=== PATIENT | male | born 1995 | race Caucasian/White ===

== ENCOUNTER 2020-09-24 21:15 | Emergency (ER) | payer MEDICAID, SELFPAY ==
[2020-09-24 21:27] VITALS: BP 153/86; PULSE 95; RESP 16; TEMP 36.8; O2SAT 99; BMI 20.7
[2020-09-24 21:56] LABS: Glucose Urine UA NEG (NEG); Leukocyte Esterase Urine 1+ (NEG); Nitrite Urine NEG (NEG); PH 8.5 (5.0-8.0); Urine Blood 3+ (NEG); Urine Ketones NEG (NEG)
[2020-09-24 21:58] LABS: Appearance Urine CLOUDY; Color Urine YELLOW; Urine Protein 2+ MG/DL (NEG-TRACE)
[2020-09-24 22:07] LABS: Amorphous Sediment Urine 2+ /LPF; Bacteria Urine 2+ /LPF; RBC Urine 50-75 /HPF (0)
[2020-09-24] MEDS: Ketorolac Tromethamine 30 MG/ML VIAL IVPUSH (22:46)
[2020-09-24] MEDS: 0.9 % Sodium Chloride 1,000 ML 999 ML IVCONT (22:46)
[2020-09-24 22:55] LABS: Basophils Absolute Auto 0.1 X10*3/uL (0.0-0.2); Basophils Percent Auto 0.7 % (0-2); Eosinophils Absolute Auto 0.6 X10*3/uL (0.0-0.4); Eosinophils Percent Auto 7.6 % (0-4); Hematocrit 41.7 % (42-52); Hemoglobin 14.1 g/dl (14.0-18.0); Imm Gran Abs Auto 0.01 X10*3/uL (0.00-0.03); Imm Gran Pct Auto 0.1 % (0.0-0.4); Lymphocytes Absolute Auto 2.9 X10*3/uL (1.2-4.9); Lymphocytes Percent Auto 38.1 % (20-40); MANUAL DIFF FLAG NO; Mean Corpuscular HGB Conc 33.8 g/dl (31.0-36.0); Mean Corpuscular Hemoglobin 31.7 pg (27.0-33.0); Mean Corpuscular Volume 93.7 fL (80-98); Mean Platelet Volume 9.8 fL (9.4-12.4); Monocytes Absolute Auto 0.6 X10*3/uL (0.1-1.2); Monocytes Percent Auto 8.1 % (2-11); Neutrophils Absolute Auto 3.4 X10*3/uL (2.0-8.3); Neutrophils Percent Auto 45.4 % (45-73); Platelet Count 285 X10*3/uL (160-400); Red Blood Count 4.45 X10*6/uL (4.60-5.80); Red Cell Distribution Width 12.4 % (11.0-16.0); White Blood Count 7.5 X10*3/uL (4.8-10.8)
[2020-09-24 23:03] LABS: Prothrombin Time 11.6 SEC (10.8-13.0)
[2020-09-24 23:05] LABS: Partial Thromboplastin Time 34.5 SEC (24.1-38.0)
--- NOTE | 2020-09-24 23:12 | ED.ABDPAIN ---
HPI - Abdominal Pain General Chief Complaint: Abdominal Pain Stated Complaint: abd pain Time Seen by Provider: 09/24/20 22:15 Source: patient Mode of arrival: ambulatory Limitations: no limitations History of Present Illness HPI narrative: Patient presents to ED for right-sided abdominal pain, flank pain and , hematuria. Patient states history of kidney stones. Patient states he had stent placed 2 months ago. Patient states no fever, chills, penile lesions, or testicular pain. Patient states having symptoms for the past 2 days MD elicited complaint: abdominal pain and flank pain Related Data Previous Rx's Medication Instructions Recorded cefpodoxime 200 mg PO Q12H #20 tab 09/25/20 naproxen 500 mg PO BID PRN #20 tab 09/25/20 oxycodone-acetaminophen [Percocet] 1 tab PO TID PRN #9 tab 09/25/20 tamsulosin [Flomax] 0.4 mg PO DAILY #10 cap 09/25/20 Allergies Allergy/AdvReac Type Severity Reaction Status Date / Time sulfamethoxazole Allergy Mild HIVES Verified 09/24/20 21:26 [From BACTRIM] trimethoprim [From BACTRIM] Allergy Mild HIVES Verified 09/24/20 21:26 Review of Systems Constitutional: Reports as per HPI and Reports no additional constitutional complaints Eyes: Reports as per HPI and Reports no additional eye complaints Reports system reviewed and no additional complaints, except as documented and Reports as per HPI Cardiovascular: Reports as per HPI and Reports no additional cardiovascular complaints Respiratory: Reports as per HPI and Reports no additional respiratory complaints Gastrointestinal: Reports as per HPI, Reports no additional gastrointestinal complaints and Reports abdominal pain Comments: right flank pain Genitourinary: Reports no additional male genitourinary complaints, Reports as per HPI, Reports dysuria and Reports flank pain Musculoskeletal: Reports no additional musculoskeletal complaints and Reports as per HPI Reports system reviewed and no additional complaints, except as documented and Reports as per HPI Psychiatric: Reports no additional psychiatric complaints and Reports as per HPI Physical Exam Vital Signs: Vital Signs: Last Vital Signs Temp 98.2 F 09/24/20 21:27 Pulse 97 09/25/20 01:38 Resp 16 09/25/20 01:38 BP 125/75 09/25/20 01:38 Pulse Ox 100 09/25/20 01:38 Body Mass Index 20.7 Const: General: cooperative, healthy appearing, comfortable, no acute distress, well developed, alert, awake and Physically active Orientation/consciousness: oriented to person, oriented to place, oriented to time and patient oriented x3 HENMT: Head: Yes normal to inspection and Yes No palpable skull fracture present Eyes: General: appearance normal, both eyes and all related structures Neck: Neck: Yes normal visual inspection and Yes full ROM Chest: Chest palpation & inspection: normal inspection of the chest and normal palpation of entire chest wall Resp: Effort & Inspection: normal respiratory effort and able to speak in complete sentences Cardio: Jugular venous distension: no JVD Heart sounds: S1 normal heart sound present and S2 normal heart sound present GI: Inspection: Yes normal to inspection Palpation (GI): Soft to palpation, not firm, Tenderness to palpation present (GI) in the RLQ; not in the epigastrum, not at McBurney's point, not periumbilically, not suprapubicly, Ward's sign negative, obturator sign negative, psoas sign negative, with no rebound tenderness and Rovsing's sign negative, no guarding and not rigid : General: Yes CVA tenderness ( right-sided) Back/Spine/Pelvis: Back: CVA tenderness ( right-sided) Skin: General skin exam: no rashes or lesions noted Neuro: General: oriented to person, oriented to place, oriented to time, patient oriented x3, gait normal and CN's II-XI intact bilaterally Cranial nerves: Yes CN's II-XII intact bilaterally Extrem: General: Yes normal to inspection and Yes full ROM Psych: Appearance: grossly normal, well kempt and not disheveled Course Course Course Narrative: history physical exam indicate kidney stones. Patient will be sent for CT scan to rule out kidney stone. Patient will have labs, IV fluids, Toradol ordered. Reevaluation(s) Reevaluation #1: CT scan shows 8x5mm right ureter stone. CT scan negative for obtruction or hydrnephrosis. Patient's pain resolved with toradol. Patient kidney function is normal. Patient UA shows possible miild UTI. Patient has stent in right kidney. Cased discussed with attendant Dr. Anderson who states patient is safe for discharge and can call Urologist for outpatient appointment. Patient is not septic or toxic appearing. Patient to be discharged with cepdoxime and percocet. Time: 02:45 MDM - Abdominal Pain MDM Narrative Medical decision making narrative: Kidney stones Lab Data Result diagrams: 09/24/20 22:38 09/24/20 22:38 Labs: Lab Results 09/24/20 09/24/20 09/24/20 Range/Units 21:44 22:38 22:38 WBC 7.5 (4.8-10.8) X10*3/uL RBC 4.45 L (4.60-5.80) X10*6/uL Hgb 14.1 (14.0-18.0) g/dl Hct 41.7 L (42-52) % MCV 93.7 (80-98) fL MCH 31.7 (27.0-33.0) pg MCHC 33.8 (31.0-36.0) g/dl RDW 12.4 (11.0-16.0) % Plt Count 285 (160-400) X10*3/uL MPV 9.8 (9.4-12.4) fL Immature Gran % (Auto) 0.1 (0.0-0.4) % Neut % (Auto) 45.4 (45-73) % Lymph % (Auto) 38.1 (20-40) % [place] % (Auto) 8.1 (2-11) % Eos % (Auto) 7.6 H (0-4) % Baso % (Auto) 0.7 (0-2) % Lymph # (Auto) 2.9 (1.2-4.9) X10*3/uL [place] # (Auto) 0.6 (0.1-1.2) X10*3/uL Eos # (Auto) 0.6 H (0.0-0.4) X10*3/uL Baso # (Auto) 0.1 (0.0-0.2) X10*3/uL Abs Immat Gran (auto) 0.01 (0.00-0.03) X10*3/uL Absolute Neuts (auto) 3.4 (2.0-8.3) X10*3/uL Absolute Nucleated RBC 0.000 (0.0-0.012) X10*3/uL Nucleated RBC % (auto) 0.0 (0.0-0.2) /100WBC PT 11.6 (10.8-13.0) SEC INR 1.0 (0.9-1.1) APTT 34.5 (24.1-38.0) SEC Sodium (135-145) mmol/L Potassium (3.3-5.1) mmol/l Chloride (96-108) mmol/L Carbon Dioxide (22-29) mmol/L Anion Gap (12-20) BUN (9-16) mg/dL Creatinine (0.5-1.4) mg/dL Estim Creat Clear Calc Estimated GFR Random Glucose (60-115) mg/dL Calcium (8.4-10.2) mg/dL Total Bilirubin (0.0-1.0) mg/dL Direct Bilirubin (0.0-0.5) mg/dL AST (5-37) U/L ALT (0-40) U/L Alkaline Phosphatase (39-117) U/L Total Protein (6.5-8.0) g/dL Albumin (3.5-5.0) g/dL Lipase (8-78) U/L Urine Color YELLOW Urine Appearance CLOUDY Urine pH 8.5 H (5.0-8.0) Ur Specific [place] 1.020 (1.005-1.025) Urine Protein 2+ H (NEG-TRACE) MG/DL Urine Glucose (UA) NEG (NEG) MG/DL Urine Ketones NEG (NEG) MG/DL Urine Blood 3+ H (NEG) Urine Nitrite NEG (NEG) Ur Leukocyte Esterase 1+ H (NEG) Urine RBC 50-75 H (0) /HPF Urine WBC 1-4 (0-4) /HPF Ur Squamous Epith Cells NONE /LPF Amorphous Sediment 2+ /LPF Urine Bacteria 2+ /LPF 09/24/20 Range/Units 22:38 WBC (4.8-10.8) X10*3/uL RBC (4.60-5.80) X10*6/uL Hgb (14.0-18.0) g/dl Hct (42-52) % MCV (80-98) fL MCH (27.0-33.0) pg MCHC (31.0-36.0) g/dl RDW (11.0-16.0) % Plt Count (160-400) X10*3/uL MPV (9.4-12.4) fL Immature Gran % (Auto) (0.0-0.4) % Neut % (Auto) (45-73) % Lymph % (Auto) (20-40) % [place] % (Auto) (2-11) % Eos % (Auto) (0-4) % Baso % (Auto) (0-2) % Lymph # (Auto) (1.2-4.9) X10*3/uL [place] # (Auto) (0.1-1.2) X10*3/uL Eos # (Auto) (0.0-0.4) X10*3/uL Baso # (Auto) (0.0-0.2) X10*3/uL Abs Immat Gran (auto) (0.00-0.03) X10*3/uL Absolute Neuts (auto) (2.0-8.3) X10*3/uL Absolute Nucleated RBC (0.0-0.012) X10*3/uL Nucleated RBC % (auto) (0.0-0.2) /100WBC PT (10.8-13.0) SEC INR (0.9-1.1) APTT (24.1-38.0) SEC Sodium 140 (135-145) mmol/L Potassium 4.0 (3.3-5.1) mmol/l Chloride 105 (96-108) mmol/L Carbon Dioxide 27 (22-29) mmol/L Anion Gap 12 (12-20) BUN 16 (9-16) mg/dL Creatinine 1.13 (0.5-1.4) mg/dL Estim Creat Clear Calc 81.5 Estimated GFR > 60 Random Glucose 97 (60-115) mg/dL Calcium 8.7 (8.4-10.2) mg/dL Total Bilirubin 0.2 (0.0-1.0) mg/dL Direct Bilirubin < 0.2 (0.0-0.5) mg/dL AST 15 (5-37) U/L ALT 8 (0-40) U/L Alkaline Phosphatase 62 (39-117) U/L Total Protein 7.0 (6.5-8.0) g/dL Albumin 4.3 (3.5-5.0) g/dL Lipase 20 (8-78) U/L Urine Color Urine Appearance Urine pH (5.0-8.0) Ur Specific [place] (1.005-1.025) Urine Protein (NEG-TRACE) MG/DL Urine Glucose (UA) (NEG) MG/DL Urine Ketones (NEG) MG/DL Urine Blood (NEG) Urine Nitrite (NEG) Ur Leukocyte Esterase (NEG) Urine RBC (0) /HPF Urine WBC (0-4) /HPF Ur Squamous Epith Cells /LPF Amorphous Sediment /LPF Urine Bacteria /LPF Discharge Plan Discharge Clinical Impression: Calculus, ureter Patient Disposition: Home, Self-Care Instructions: Ureteral Stones (ED) Additional Instructions: return to the ED immediately for worsening abdominal pain, flank pain, fever, chills, nausea, vomiting, or any other concerning symptoms. Prescriptions: New cefpodoxime 200 mg tablet 200 mg PO Q12H Qty: 20 RF: 0 oxycodone-acetaminophen [Percocet] 5-325 mg tablet 1 tab PO TID PRN (Reason: pain) Qty: 9 RF: 0 tamsulosin [Flomax] 0.4 mg capsule 0.4 mg PO DAILY Qty: 10 RF: 0 naproxen 500 mg tablet 500 mg PO BID PRN (Reason: pain) Qty: 20 RF: 0 Referrals: Michael Wasserman MD [Physician] - 2 days ( 8 x 5 mm ureter stone. Patient already has stent.) Discharge Date/Time: 09/25/20 03:05 Print Language: Samoan [facility] Past Medical History Medical History Kidney stones Social History Social History Alcohol intake: unknown Smoking Status: Unknown if ever smoked Use of substances other than those prescribed or required for medical reasons: Unknown Advance Directives: No Advance Directives Information Provided: No
--- NOTE | 2020-09-24 23:20 | CT_ITS ---
EXAMINATION: CT ABDOMEN AND PELVIS WITHOUT CONTRAST CLINICAL INFORMATION: Flank pain. COMPARISON: CT dated 05/28/2020 TECHNIQUE: Multidetector volumetric imaging was performed from the superior aspect of the liver through the pubic symphysis. Sagittal and coronal reformatted images were obtained on the technologist's workstation. This CT examination was performed using dose optimization techniques as appropriate, variously including the following: *Automated exposure control *Adjustment of mA and/or kV according to patient size (this includes techniques or standardized protocols for targeted exams where dose is matched to indication/reason for exam; i.e. extremities or head) *Use of iterative reconstruction technique DLP: 386 mGy-cm FINDINGS: LUNG BASES: c imaged lung bases demonstrate mild bronchial wall thickening and scattered centrilobular nodular opacities. There is slightly more patchy groundglass opacity within the left lower lobe. There is a 4 mm nodule within the middle lobe with pleural tag favored representing a cyst lymph node. There are couple additional pleural micronodules also most compatible with lymph nodes. LIVER, GALLBLADDER, AND BILIARY TREE: The liver is normal in size, shape, and attenuation. No focal hepatic lesion or biliary ductal dilatation is present. Gallbladder physiologically contracted. PANCREAS: Unremarkable. SPLEEN: Unremarkable. ADRENAL GLANDS: Unremarkable. KIDNEYS AND URETERS: Right nephroureteral stent present, with proximal coiling within the upper pole of the right kidney, and distal end coiling within the bladder. The upper pole calyces are decompressed. There is mild right lower pole caliectasis. No change in size or position of the proximal right ureteral calculus measuring 8 x 5 mm located 4 cm distal to the ureteropelvic junction. BLADDER: Unremarkable. GASTROINTESTINAL TRACT: The small and large bowel are unremarkable. The appendix is unremarkable. ABDOMINAL WALL: No significant hernia is appreciated. LYMPH NODES: Normal. VASCULAR: Unremarkable. PELVIC VISCERA: Unremarkable. OSSEOUS STRUCTURES: Unremarkable. CT/CT abdomen pelvis wo con IMPRESSION: * Right nephroureteral stent in place with the proximal end coiling within the upper pole of the right kidney which is decompressed. There is mild caliectasis of the lower pole of the right kidney. * Previously seen 8 x 5 mm right ureteral calculus is stably positioned within the proximal right ureter, 4 cm distal to the ureteropelvic junction.
[2020-09-24 23:25] LABS: Alanine Aminotransferase 8 U/L (0-40); Albumin Level 4.3 g/dL (3.5-5.0); Alkaline Phosphatase 62 U/L (39-117); Anion Gap 12 (12-20); Aspartate Amino Transferase 15 U/L (5-37); Bilirubin Direct < 0.2 mg/dL (0.0-0.5); Bilirubin Total 0.2 mg/dL (0.0-1.0); Blood Urea Nitrogen 16 mg/dL (9-16); Calcium 8.7 mg/dL (8.4-10.2); Carbon Dioxide 27 mmol/L (22-29); Chloride 105 mmol/L (96-108); Creatinine Clr Calc Pharmacy 81.5; Estimated Glomerular Filt Rate > 60; Glucose Random 97 mg/dL (60-115); Lipase 20 U/L (8-78); Sodium 140 mmol/L (135-145)
[2020-09-25] VITALS: BP 117/73; PULSE 83; RESP 15; O2SAT 98
[2020-09-25 01:38] VITALS: BP 125/75; PULSE 97; RESP 16; O2SAT 100
== END 2020-09-25 03:05 | disposition home or self-care (01) ==
PROVIDERS: Physician Assistant; Emergency Provider Emergency Medicine
DX: N20.2 Calculus of kidney with calculus of ureter (principal); Z96.0 Presence of urogenital implants
CPT/HCPCS: 36415; 74176; 80053; 80076; 81001; 82248; 83690; 85025; 85610; 85730; 87086; 96361; 96374; 99284; J1885

== ENCOUNTER 2020-12-09 17:47 | Emergency (ER) | payer MEDICAID, SELFPAY ==
[2020-12-09 19:15] VITALS: BP 134/82; PULSE 93; RESP 18; TEMP 37.1; O2SAT 97; BMI 23.1
[2020-12-09 20:40] LABS: Glucose Urine UA NEG (NEG); Leukocyte Esterase Urine 1+ (NEG); Nitrite Urine NEG (NEG); Specific Gravity - Urine 1.025 (1.005-1.025); UACC Culture Trigger YES; Urine Blood 3+ (NEG); Urine Ketones NEG (NEG); Urine Protein 2+ MG/DL (NEG-TRACE)
[2020-12-09 20:42] LABS: Appearance Urine CLOUDY; Color Urine YELLOW
[2020-12-09 20:48] LABS: Bacteria Urine 1+ /LPF; RBC Urine TNTC /HPF (0)
--- NOTE | 2020-12-09 21:13 | PC.NURSE ---
PT HAD BEEN IN THE WAITING ROOM FOR AWHILE AND HE TOLD NURSE THAT HE ALREADY HAD A RIDE COMING AND HE WOULD BE LEAVING THE MINUTE THE RIDE CAME. SENIOR TREASURY CONSULTANT DIDANTO AT BEDSIDE TO SEE PT. MEDICATION ORDER BUT PT LEFT BEFORE MEDICATION OR D/C PAPER WORK COULD BE GIVEN.
--- NOTE | 2020-12-09 22:26 | ED_ITS ---
HPI - Abdominal Pain General Chief Complaint: Abdominal Pain Stated Complaint: kidney stones? Time Seen by Provider: 12/09/20 21:02 Source: patient Mode of arrival: ambulatory Limitations: no limitations History of Present Illness HPI narrative: 25-year-old male with past medical history of kidney stones presents with flank pain and hematuria. MD elicited complaint: flank pain Pertinent past history: kidney stones Onset (ago): day(s) Pain Consistency: constant Location: L flank Severity: moderate Quality: aching Treatments prior to arrival: NSAIDs Related Data Previous Rx's Medication Instructions Recorded cefpodoxime 200 mg PO Q12H #20 tab 09/25/20 naproxen 500 mg PO BID PRN #20 tab 09/25/20 oxycodone-acetaminophen [Percocet] 1 tab PO TID PRN #9 tab 09/25/20 tamsulosin [Flomax] 0.4 mg PO DAILY #10 cap 09/25/20 levofloxacin 500 mg PO DAILY 7 Days #7 tab 12/09/20 naproxen 500 mg PO BID PRN #60 tab 12/09/20 prednisone 20 mg PO DAILY 7 Days #7 tab 12/09/20 tamsulosin [Flomax] 0.4 mg PO DAILY 14 Days #14 cap 12/09/20 Allergies Allergy/AdvReac Type Severity Reaction Status Date / Time sulfamethoxazole Allergy Mild HIVES Verified 12/09/20 19:14 [From BACTRIM] trimethoprim [From BACTRIM] Allergy Mild HIVES Verified 12/09/20 19:14 Review of Systems Review of Systems Constitutional: No Fever, No Chills ENT/Mouth: No sore throat Eyes: No Eye Pain, No Swelling, No Redness Cardiovascular: No Chest Pain, No SOB Respiratory: No Cough, No Sputum, No Wheezing Gastrointestinal: No Nausea, no Vomiting, No Diarrhea, positive abdominal pain Genitourinary: No Dysuria, positive urinary frequency, positive Hematuria, positive Flank Pain, no hesitancy Musculoskeletal: No joint pain, No Myalgias Skin: No Skin Lesions, No rash Neuro: No Weakness, No Numbness, No Headache Psych: No Anxiety/Panic, No Depression Heme/Lymph: No Bruising, No Lymphadenopathy Endocrine: No Polyuria, No Polydipsia Yes all other systems are reviewed and are negative Physical Exam Vital Signs: Vital Signs: Last Vital Signs Temp 98.7 F 12/09/20 19:15 Pulse 93 12/09/20 19:15 Resp 18 12/09/20 19:15 BP 134/82 12/09/20 19:15 Pulse Ox 97 12/09/20 19:15 Body Mass Index 23.1 Appearance: Alert. Oriented X3. No acute distress. Eyes: Pupils equal, round and reactive to light. ENT: Pharynx normal. Neck: Normal inspection. Neck supple. CVS: Normal heart rate and rhythm. Pulses normal. Respiratory: No respiratory distress. Breath sounds normal. Abdomen: Soft and nontender. Skin: Skin warm and dry. Normal skin color. Normal skin turgor. Extremities: No lower extremity edema. Neuro: No motor deficit. No sensory deficit. Course Course Course Narrative: 25-year-old male with past medical history of kidney stones and HIV presents to the emergency department for hematuria and flank pain. Patient has had a 7 hour and 32 minutes wait time, very upset, asking about his urinalysis. Results given, he wants to be treated with kidney stone protocol, will give Levaquin for positive leukocyte esterase and bacteria in the urine, he does not want any further studies, I feel those when is appropriate as it will cover for immunocompromised as well as possible pyelo. Patient left before paper discharge instructions were given, this [employer] SUPERVISOR had extensive discussion with the patient prior to his departure. MDM - Abdominal Pain Differential Diagnosis Differential diagnosis: Likely abdominal pain and calculus of kidney Medical Records Attestation: I reviewed the patient's medical records. Lab Data Attestation: I reviewed the patient's lab results. Labs: Lab Results 12/09/20 Range/Units 19:26 Urine Color YELLOW Urine Appearance CLOUDY Urine pH 7.0 (5.0-8.0) Ur Specific [place] 1.025 (1.005-1.025) Urine Protein 2+ H (NEG-TRACE) MG/DL Urine Glucose (UA) NEG (NEG) MG/DL Urine Ketones NEG (NEG) MG/DL Urine Blood 3+ H (NEG) Urine Nitrite NEG (NEG) Ur Leukocyte Esterase 1+ H (NEG) Urine RBC TNTC H (0) /HPF Urine WBC 5-9 H (0-4) /HPF Ur Squamous Epith Cells NONE /LPF Urine Bacteria 1+ /LPF Discharge Plan Discharge Clinical Impression: Calculus of kidney, Acute UTI Patient Disposition: Elopement Instructions: Kidney Stones (ED), Urinary Tract Infection in Men (ED), Hematuria (ED), Flank Pain (ED) Additional Instructions: You were evaluated for flank pain and urinary symptoms. You do have a known history of kidney stones, your urinalysis is positive for blood and bacteria with leukocyte esterase. This could possibly be a UTI or pyelonephritis, we will treat with Levaquin 500 mg daily for the next 7 days. If symptoms persist or get worse please return to the emergency department. Thank you for choosing this emergency department for evaluation. Please follow-up with primary care physician as needed. Return to the emergency department for any new, concerning, or worsening symptoms. Prescriptions: New levofloxacin 500 mg tablet 500 mg PO DAILY 7 Days Qty: 7 RF: 0 prednisone 20 mg tablet 20 mg PO DAILY 7 Days Qty: 7 RF: 0 tamsulosin [Flomax] 0.4 mg capsule 0.4 mg PO DAILY 14 Days Qty: 14 RF: 0 naproxen 500 mg tablet 500 mg PO BID PRN (Reason: pain) Qty: 60 RF: 0 No Action cefpodoxime 200 mg tablet 200 mg PO Q12H Qty: 20 RF: 0 oxycodone-acetaminophen [Percocet] 5-325 mg tablet 1 tab PO TID PRN (Reason: pain) Qty: 9 RF: 0 tamsulosin [Flomax] 0.4 mg capsule 0.4 mg PO DAILY Qty: 10 RF: 0 naproxen 500 mg tablet 500 mg PO BID PRN (Reason: pain) Qty: 20 RF: 0 Interventions: ED Discharge Assessment Last Done: 12/09/20 21:20 Discharge Date/Time: 12/09/20 21:59 [facility] Past Medical History Attestation statement: The following information was validated with the patient. Source: old records reviewed Medical History (Updated 12/09/20 @ 21:10 by Oliva Cunha NP) HIV (human immunodeficiency virus infection) Kidney stones Social History Social History Alcohol intake: never Smoking Status: Unknown if ever smoked Smoked in Last 30 Days: No Use of substances other than those prescribed or required for medical reasons: No Any prior treatment program specific to substance use: No Advance Directives: No Advance Directives Information Provided: No
== END 2020-12-09 21:59 | disposition left against medical advice (07) ==
PROVIDERS: Emergency Provider Emergency Medicine
DX: N20.0 Calculus of kidney (principal); N39.0 Urinary tract infection, site not specified; Z87.442 Personal history of urinary calculi; B20 Human immunodeficiency virus [HIV] disease; Z79.899 Other long term (current) drug therapy
CPT/HCPCS: 81001; 81003; 87086; 99283; 99284

== ENCOUNTER → 2021-01-02 10:18 | Outpatient (BNVA) | payer MEDICAID, SELFPAY | PROVIDERS: Visit Provider Urology | DX: N20.0 Calculus of kidney (principal) | CPT/HCPCS: 81002; 99212 ==

== ENCOUNTER 2021-02-04 06:23 | Day surgery (SDC) | payer MEDICAID, SELFPAY ==
[2021-01-28 13:06] VITALS: BMI 23.1
[2021-02-04] VITALS (7 sets, daily range): BP systolic 97–137; BP diastolic 49–82; PULSE 63–98; RESP 16–18; TEMP 36.4–36.8; O2SAT 98–100
--- NOTE | ~2021-02-04 | XR_ITS ---
EXAMINATION: XR ABDOMEN KUB CLINICAL INDICATION: Nephrolithiasis COMPARISON: CT abdomen noncontrast 09/24/2020 TECHNIQUE: AP view of the abdomen. FINDINGS: There is a right ureteral stent in position. The right ureteral calculus 5 x 8 mm is again noted adjacent to the stent at the level of L4. There are calcified phleboliths in the pelvis. No visible left urinary tract calculi. Incidental spina bifida occulta upper sacrum. Bowel gas unremarkable. XR/XR KUB IMPRESSION: Right ureteral calculus at level L4. Right ureteral stent in position.
--- NOTE | 2021-02-04 06:22 | PC.NURSE ---
left message for patient arrival time 0600 not here
[2021-02-04] MEDS: levoFLOXacin 500 MG TABLET PO (06:48)
--- NOTE | 2021-02-04 07:13 | P.CONAN_ITS ---
PMFSH Active Problems Active Problems: All Active Problems (Updated 01/02/21 @ 10:46 by Michael dial MD) Kidney stones (Acute) Past Medical History Medical History HIV (human immunodeficiency virus infection) Kidney stones Surgical History Surgical History Hx of cystoscopy Hx of endoscopy Social History Social History Alcohol intake: never Smoking Status: Unknown if ever smoked Advance Directives Information Provided: No Meds Allergies Allergy/AdvReac Type Severity Reaction Status Date / Time sulfamethoxazole Allergy Mild HIVES Verified 12/09/20 19:14 [From BACTRIM] trimethoprim [From BACTRIM] Allergy Mild HIVES Verified 12/09/20 19:14 Active Medications: Current Medications Generic Name Dose Route Start Last Admin Trade Name Freq PRN Reason Stop Dose Admin Lactated Ringer's 1,000 mls @ 50 mls/hr 02/04/21 07:15 Lr IV .Q20H [facility] Home Medications Medication Instructions Recorded Confirmed Last Taken Type fphxkhzhx-kmedloba-zraxgef ala 1 tab PO DAILY 01/28/21 01/28/21 02/04/21 History [Biktarvy] Exam Exam Date and Time: February 04, 2021 0713 Height,Weight and Vital Signs: Height 5 ft 4 in Weight 61.235 kg Last Vital Signs Temp 98.3 F 02/04/21 06:33 Pulse 98 02/04/21 06:33 Resp 18 02/04/21 06:33 BP 137/82 02/04/21 06:33 Pulse Ox 98 02/04/21 06:33 Airway Mallampati Class: I TM Dist: >3cm Neck ROM: Full Assessment and Plan Assessment Anesthesia Assessment: Anesthesia Plan Discussed and Chart Reviewed Final Anesthetic Review NPO: Yes ASA Class: II Final Preanesthetic Review: No Changes in Pt Med Stat, Meds/Allgs Chart Reviewed, Consent Obtained/Reviewed and Anes Risks/Benef Reviewed Patient Risk: Low Procedure Risk: Low Assessment/Block/Sedation in SS: Assess/Block/Sedation-SS Anesthetic Plan Anesthetic Plan: MAC: Disposition: Standard PACU
--- NOTE | 2021-02-04 07:20 | MHC.SHP ---
Pre-Procedural Eval Section A The patient is an INPATIENT: No Changes since office visit: No Cold of Flu in the past 2 weeks, No New Medical Problems, No Changes in Medication and No Patient answered all questions The History & Physical has been completed within 30 days and I have reviewed it.: No Section B Chief Complaint: kidney stone Details of Present Illness: right upper ureter stone with stent Relevant Family History (Specify if Yes): No Relevant Social History: None Present Medications: see Short Stay Collaborative assessment Allergies: Allergies Allergy/AdvReac Type Severity Reaction Status Date / Time sulfamethoxazole Allergy Mild HIVES Verified 12/09/20 19:14 [From BACTRIM] trimethoprim [From BACTRIM] Allergy Mild HIVES Verified 12/09/20 19:14 Review of Systems Sugical H&P ROS: Negative: Constitution, Cardiovascular, Respiratory, Neurological, Psychiatric, Hem-Onc, Allergic/Immunologic, Gastrointestinal, Genitourinary, Musculoskeletal, Integumentary, Endocrine and Eyes/Ears/Nose/Throat Exam Surgical H&P Exam: Normal: HEENT, Normal: Heart, Normal: Lungs, Normal: Extremities, Normal: Abdomen, Normal: Skin and Normal: Neurological Plan Diagnosis/Plan: Unchanged (right upper ureter 8mm with stent - for ESWL) I have reviewed the history and physical and performed a pertinent physical examination on my patient. No changes have occurred unless specified.
[2021-02-04] MEDS: Lactated Ringers 1,000 ML 50 ML IV (07:21)
--- NOTE | 2021-02-04 07:57 | PM.OP ---
Brief Operative Note Date of Service: 02/04/21 Pre-op diagnosis: right ureteric stone Post-op diagnosis: same Procedure: eswl, stent removal Surgeon: Michael Wasserman MD Anesthesia: MAC Estimated blood loss (mL): 0 Pathology: none sent Condition: stable
--- NOTE | 2021-02-04 07:58 | W.PM.OPN ---
Operative Note Operative Note Date of Service: 02/04/21 Narrative: PreOperative Diagnosis: right ureter stones Post Operative Diagnosis: right ureter stones Procedure: ESWL with cysto right stent removal Surgeon: Dr Michael Wasserman Anesthesia: mac/sedation Indications for procedure: They understand ESWL may be a staged procedure and subsequent intervention may be required based on imaging after ESWL. They also understand there is a risk of bleeding, infection, damage to adjacent organs. Procedure: After informed consent was verified the patient was brought to the operating room and placed in a supine position. Anesthesia was performed per protocol. Safety pause time-out was performed. Imaging was in the room and laterality confirmed. ESWL was performed. The 1st 500 shocks were performed at 60 hertz. These were performed with increasing power. Once maximum power was reached the rate was increased to 180 hertz. A total of 2500 shocks were given. Fluoroscopy showed stone disintegration. Cystoscopy performed with stent removal via grasper. They tolerated procedure well and was transferred to the recovery area upon completion.
== END 2021-02-04 11:52 | disposition home or self-care (01) ==
PROVIDERS: Visit Provider Urology
PROC: (CPT 50590; principal; 2021-02-04 07:30)
DX: N20.0 Calculus of kidney (principal); Z96.0 Presence of urogenital implants; Z87.442 Personal history of urinary calculi; B20 Human immunodeficiency virus [HIV] disease; Z79.899 Other long term (current) drug therapy; Z88.2 Allergy status to sulfonamides
CPT/HCPCS: 50590; 52310; 74018; J1885; J2250; J2405; J3010

== ENCOUNTER 2022-01-15 14:57 | Inpatient (IN) | payer MEDICAID, SELFPAY ==
--- NOTE | 2022-01-15 | ECG_ITS ---
Test Reason : MEDICAL CLEARANCE Blood Pressure : / mmHG Vent. Rate : 100 BPM Atrial Rate : 100 BPM P-R Int : 146 ms QRS Dur : 074 ms QT Int : 334 ms P-R-T Axes : 059 033 016 degrees QTc Int : 430 ms Normal sinus rhythm ST elevation, consider early repolarization Borderline ECG No previous ECGs available Referred By: Leah Pringle Electronically Signed By:EFREN BECKETT
--- NOTE | ~2022-01-15 | CT_ITS ---
EXAMINATION: CT CHEST WITHOUT CONTRAST CLINICAL INFORMATION: Pneumonia, HIV. COMPARISON: Chest radiograph dated 01/15/2022. TECHNIQUE: Multidetector volumetric CT imaging of the chest was done. Axial MIP volume rendering provided. Sagittal and coronal reformatted images were obtained. This CT examination was performed using dose optimization techniques as appropriate, variously including the following: *Automated exposure control *Adjustment of mA and/or kV according to patient size (this includes techniques or standardized protocols for targeted exams where dose is matched to indication/reason for exam; i.e. extremities or head) *Use of iterative reconstruction technique DLP: 171 mGy-cm FINDINGS: LUNGS/PLEURA/AIRWAYS: Respiratory motion artifact limits evaluation in the lower lung barr. No focal consolidation. A few scattered pulmonary nodules are seen. Bryologist nodules are as follows: Right apex, posterolateral subpleural: 0.3 cm, image 83, series 5 Right upper lobe, anterior subpleural: 0.3 cm, image 204, series 5 Right upper lobe, anterolateral: 0.3 cm, image 305, series 5 Right upper lobe, anterior subpleural: 0.5 cm, image 216, series 5 Right middle lobe, anterolateral: 0.5 cm, image 261, series 5 There are no pleural effusions. The airways are patent. MEDIASTINUM: The visualized thyroid gland is unremarkable. Thymic tissue in the anterior mediastinum without focal mass. The thoracic aorta is unremarkable. No coronary artery calcifications. No pericardial effusion. No mediastinal or hilar lymphadenopathy. UPPER ABDOMEN: Unremarkable. MUSCULOSKELETAL: Unremarkable. SOFT TISSUES: Unremarkable. CT/CT chest wo con IMPRESSION: 1. Pulmonary nodules measuring up to 0.5 cm are nonspecific. Following Fleischner Society guidelines, imaging follow-up is recommended as clinically indicated. 2. No acute cardiopulmonary process.
--- NOTE | ~2022-01-15 | XR_ITS ---
EXAMINATION: XR CHEST CLINICAL INFORMATION: Fever, runny nose, cough COMPARISON: None TECHNIQUE: Frontal view of the chest was obtained. FINDINGS: There may be subtle airspace opacity at the right lung base. Normal pulmonary vascularity. No pleural effusion or pneumothorax. Normal heart size. No acute osseous abnormality. XR/XR chest 1V IMPRESSION: Possible subtle airspace opacity at the right lung base. This could represent developing pneumonitis/pneumonia.
[2022-01-15 15:12] VITALS: BP 145/95; PULSE 130; RESP 18; TEMP 38.1
[2022-01-15] MEDS: LORazepam 1 MG TABLET PO (15:45)
--- NOTE | 2022-01-15 16:03 | ED.PSYCH ---
HPI - Psych General Chief Complaint: Psychiatric Symptoms <FERNIE Tam Last Filed: 01/15/22 18:12> Stated Complaint: crisis <FERNIE Tam Last Filed: 01/15/22 18:12> Time Seen by Provider: 01/15/22 15:28 <FERNIE Tam Last Filed: 01/15/22 18:12> Source: patient, EMS and old records reviewed <FERNIE Tam Last Filed: 01/15/22 18:12> Mode of arrival: EMS <FERNIE Tam Last Filed: 01/15/22 18:12> Limitations: no limitations <FERNIE Tam Last Filed: 01/15/22 18:12> History of Present Illness HPI Narrative: 26 y/o male with history of HIV on HAART, kidney stones, PTSD, psychotic disorder who presents to the ER from home via EMS with manic behavior and delusions. Patient reports he is here for a lie detector test and to get a medication to calm his brain. He reports he has not been sleeping. He reports he has been having short-term memory loss, he is seeing the future, he is reading minds. He states he was previously on risperidone for diagnosis of schizophrenia but this is not correct and that he suffers from other diagnoses with memory issues. <FERNIE Tam Last Filed: 01/15/22 18:12> MD complaint: anxiety and other (susan and delusions) <FERNIE Tam Last Filed: 01/15/22 18:12> Onset (ago): unknown <FERNIE Tam Last Filed: 01/15/22 18:12> Duration: constant <FERNIE Tam Last Filed: 01/15/22 18:12> History of same: Yes <FERNIE Tam Last Filed: 01/15/22 18:12> Relieving factors: none <FERNIE Tam Last Filed: 01/15/22 18:12> Exacerbating factors: none <FERNIE Tam Last Filed: 01/15/22 18:12> Context: not taking psychiatric medications and significant life stressor <FERNIE Tam Last Filed: 01/15/22 18:12> Associated psychiatric symptoms: racing thoughts and delusions <FERNIE Tam Last Filed: 01/15/22 18:12> Associated symptoms: headache and insomnia <FERNIE Tam Last Filed: 01/15/22 18:12> Treatments prior to arrival: none <FERNIE Tam Last Filed: 01/15/22 18:12> Related Data Home Medications: Home Medications Medication Instructions Recorded Confirmed bictegravir 50 mg-emtricitabine 1 tab PO DAILY 01/28/21 01/28/21 200 mg-tenofovir alafenam 25 mg tablet (Biktarvy) Previous Rx's Medication Instructions Recorded cefpodoxime 200 mg tablet 200 mg PO Q12H #20 tab 09/25/20 naproxen 500 mg tablet 500 mg PO BID PRN #20 tab 09/25/20 oxycodone-acetaminophen 5 mg-325 1 tab PO TID PRN #9 tab 09/25/20 mg tablet (Percocet) levofloxacin 500 mg tablet 500 mg PO DAILY 7 Days #7 tab 12/09/20 prednisone 20 mg tablet 20 mg PO DAILY 7 Days #7 tab 12/09/20 tamsulosin 0.4 mg capsule (Flomax) 0.4 mg PO DAILY 14 Days #14 cap 12/09/20 tamsulosin 0.4 mg capsule 0.4 mg PO BEDTIME 14 Days #14 cap 02/04/21 tramadol 50 mg tablet 50 mg PO Q6H PRN #14 tab 02/04/21 <FERNIE Tam Last Filed: 01/15/22 18:12> Allergies/Adverse Reactions: Allergies Allergy/AdvReac Type Severity Reaction Status Date / Time sulfamethoxazole Allergy Mild HIVES Verified 12/09/20 19:14 [From BACTRIM] trimethoprim [From BACTRIM] Allergy Mild HIVES Verified 12/09/20 19:14 <FERNIE Tam Last Filed: 01/15/22 18:12> Review of Systems Review of Systems: Constitutional: No Fever, No Chills ENT/Mouth: No sore throat, + Rhinorrhea, No Swallowing Difficulty Eyes: No Eye Pain, No Swelling, No Redness Cardiovascular: No Chest Pain, No SOB, No Orthopnea, No Edema Respiratory: No Cough, No Sputum, No Wheezing, No dyspnea Gastrointestinal: + Nausea, No Vomiting, No Diarrhea, No abdominal Pain, No Hematochezia, No Melena Genitourinary: No Dysuria, No Urinary Frequency, No Hematuria Musculoskeletal: No joint pain, No Myalgias Skin: No Skin Lesions, No rash Neuro: No Weakness, No Numbness, No Dizziness, + Headache Psych: + Anxiety/Panic, + Depression, No SI, No HI Heme/Lymph: No Bruising, No Lymphadenopathy Endocrine: No Polyuria, No Polydipsia <FERNIE Tam - Last Filed: 01/15/22 18:12> PMFSH Past Medical History Medical History: Medical History HIV (human immunodeficiency virus infection) Kidney stones <FERNIE Tam - Last Filed: 01/15/22 18:12> Surgical History: Surgical History Hx of cystoscopy Hx of endoscopy <FERNIE Tam - Last Filed: 01/15/22 18:12> Social History Social History: Social History Alcohol intake: never Advance Directives: No Advance Directives Information Provided: Yes <FERNIE Tam - Last Filed: 01/15/22 18:12> Physical Exam Vital Signs: Vital Signs: Last Vital Signs Temp 100.6 F H 01/15/22 15:12 Pulse 130 H 01/15/22 15:12 Resp 18 01/15/22 15:12 BP 145/95 H 01/15/22 15:12 BMI result Body Mass Index 20.0 <FERNIE Tam - Last Filed: 01/15/22 18:12> Vital Signs: Last Vital Signs Temp 100.6 F H 01/15/22 15:12 Pulse 130 H 01/15/22 15:12 Resp 18 01/15/22 15:12 BP 145/95 H 01/15/22 15:12 BMI result Body Mass Index 20.0 <FERNIE Navarrete - Last Filed: 01/15/22 22:35> Appearance: Alert. Oriented X3. Pacing and hyperverbal Eyes: Pupils equal, round and reactive to light. ENT: Pharynx normal. Clear nasal discharge. Neck: Normal inspection. Neck supple. CVS: Normal heart rate and rhythm. Pulses normal. Respiratory: No respiratory distress. Breath sounds normal. Abdomen: Soft and nontender. +BS x4 Skin: Skin warm and dry. Normal skin color. Normal skin turgor. No rashes. Extremities: No lower extremity edema. Neuro/psych: Oriented X 3. No motor deficit. No sensory deficit. CN II-XII intact, Anxious, racing thoughts, at times does not make sense, manic with delusions, poor insight and judgment <FERNIE Tam - Last Filed: 01/15/22 18:12> Course Course Course Narrative: 26-year-old male with history of reported schizophrenia, PTSD, psychotic disorder, HIV on anti-retroviral therapy who presents to the ER from home via EMS with susan and delusions. There was concern for medication noncompliance. Upon review of records it does not seem he has been hospitalized here since 2016. He is a poor historian and cannot say if he has required other prior hospitalizations for psychiatric illness. He admits to insomnia and has racing thoughts and delusions. At times he does not make sense and his thoughts are not clear. He is a little calmer with a small dose of Ativan. Will get basic lab workup and have crisis team evaluate him. Anticipate he will require inpatient level of care. <FERNIE Tam - Last Filed: 01/15/22 18:12> Reevaluation(s) Reevaluation #1: Patient increasingly agitated and trying to elope from the unit. He was trying to fausto demons because another patient was trying to fausto demons. He agreed to oral ativan and haldol for treatment. Lab workup still pending. Will get crisis team to see him once medically clear. <FERNIE Tam - Last Filed: 01/15/22 18:12> Reevaluation #2: Patient noted to have a slight leukocytosis, and is also noted to be tachycardic and febrile. For this reason I obtained a chest x-ray to rule out pneumonia is patient is HIV positive to ensure that we are not missing any opportunistic infections. X-ray concerning for pneumonia. Patient is not a great historian, unclear of was last CD4 count was. He is on Biktarvy according to his medical reconciliation. At this time patient will be started on antibiotics, blood cultures in the lactic will be obtained. He will be given fluids. Plan admission to the hospitalist team as patient will require treatment for pneumonia. <FERNIE Navarrete - Last Filed: 01/15/22 22:35> Time: 22:34 <FERNIE Navarrete - Last Filed: 01/15/22 22:35> MDM - Psych Lab Data Result diagrams: : 01/15/22 Unknown 01/15/22 Unknown <FERNIE Tam - Last Filed: 01/15/22 18:12> Labs: Lab Results 01/15/22 01/15/22 01/15/22 Range/Units 15:56 19:06 19:21 WBC (4.8-10.8) X10*3/uL RBC (4.60-5.80) X10*6/uL Hgb (14.0-18.0) g/dl Hct (42.0-52.0) % MCV (80.0-98.0) fL MCH (27.0-33.0) pg MCHC (31.0-36.0) g/dl RDW (11.0-16.0) % Plt Count (160-400) X10*3/uL MPV (9.4-12.4) fL Immature Gran % (Auto) (0.0-0.4) % Neut % (Auto) (45-73) % Lymph % (Auto) (20-40) % Mcnairy % (Auto) (2-11) % Eos % (Auto) (0-4) % Baso % (Auto) (0-2) % Lymph # (Auto) (1.2-4.9) X10*3/uL Mcnairy # (Auto) (0.1-1.2) X10*3/uL Eos # (Auto) (0.0-0.4) X10*3/uL Baso # (Auto) (0.0-0.2) X10*3/uL Abs Immat Gran (auto) (0.00-0.03) X10*3/uL Absolute Neuts (auto) (2.0-8.3) x10*3/uL Absolute Nucleated RBC (0.0-0.012) X10*3/uL Nucleated RBC % (auto) (0.0-0.2) /100WBC Sodium (135-145) mmol/L Potassium (3.3-5.1) mmol/L Chloride (96-108) mmol/L Carbon Dioxide (22-29) mmol/L Anion Gap (12-20) BUN (9-16) mg/dL Creatinine (0.5-1.4) mg/dL Estim Creat Clear Calc Estimated GFR Random Glucose (60-115) mg/dL Calcium (8.4-10.2) mg/dL Magnesium (1.6-2.6) mg/dL Total Bilirubin (0.0-1.0) mg/dL Direct Bilirubin (0.0-0.5) mg/dL AST (5-37) U/L ALT (0-40) U/L Alkaline Phosphatase (39-117) U/L Total Protein (6.5-8.0) g/dL Albumin (3.5-5.0) g/dL Urine Color YELLOW Urine Appearance CLEAR Urine pH 5.5 (5.0-8.0) Ur Specific Minerva >= 1.030 H (1.005-1.025) Urine Protein TRACE (NEG-TRACE) MG/DL Urine Glucose (UA) NEG (NEG) MG/DL Urine Ketones 5 (NEG) MG/DL Urine Blood NEG (NEG) Urine Nitrite NEG (NEG) Ur Leukocyte Esterase NEG (NEG) Urine Opiates Screen (Not Detect) Urine Fentanyl Screen (Not Detect) Ur Barbiturates Screen (Not Detect) Ur Phencyclidine Scrn (Not Detect) Ur Amphetamines Screen (Not Detect) U Benzodiazepines Scrn (Not Detect) Urine Cocaine Screen (Not Detect) U Marijuana (THC) Screen (Not Detect) Ethyl Alcohol mg/dL COVID-19 (MIKHAIL) Negative (Negative) COVID-19 Clin Com See Note Influenza Type A (VAL) Cancelled Influenza Type B (VAL) Cancelled Influenza A & B Note Cancelled 01/15/22 01/15/22 01/15/22 Range/Units 19:21 19:30 Unknown WBC 10.9 H (4.8-10.8) X10*3/uL RBC 4.73 (4.60-5.80) X10*6/uL Hgb 14.6 (14.0-18.0) g/dl Hct 42.9 (42.0-52.0) % MCV 90.7 (80.0-98.0) fL MCH 30.9 (27.0-33.0) pg MCHC 34.0 (31.0-36.0) g/dl RDW 12.8 (11.0-16.0) % Plt Count 266 (160-400) X10*3/uL MPV 9.5 (9.4-12.4) fL Immature Gran % (Auto) 0.4 (0.0-0.4) % Neut % (Auto) 70.1 (45-73) % Lymph % (Auto) 17.9 L (20-40) % Mcnairy % (Auto) 10.3 (2-11) % Eos % (Auto) 0.9 (0-4) % Baso % (Auto) 0.4 (0-2) % Lymph # (Auto) 2.0 (1.2-4.9) X10*3/uL Mcnairy # (Auto) 1.1 (0.1-1.2) X10*3/uL Eos # (Auto) 0.1 (0.0-0.4) X10*3/uL Baso # (Auto) 0.0 (0.0-0.2) X10*3/uL Abs Immat Gran (auto) 0.04 H (0.00-0.03) X10*3/uL Absolute Neuts (auto) 7.7 (2.0-8.3) x10*3/uL Absolute Nucleated RBC 0.000 (0.0-0.012) X10*3/uL Nucleated RBC % (auto) 0.0 (0.0-0.2) /100WBC Sodium (135-145) mmol/L Potassium (3.3-5.1) mmol/L Chloride (96-108) mmol/L Carbon Dioxide (22-29) mmol/L Anion Gap (12-20) BUN (9-16) mg/dL Creatinine (0.5-1.4) mg/dL Estim Creat Clear Calc Estimated GFR Random Glucose (60-115) mg/dL Calcium (8.4-10.2) mg/dL Magnesium (1.6-2.6) mg/dL Total Bilirubin (0.0-1.0) mg/dL Direct Bilirubin (0.0-0.5) mg/dL AST (5-37) U/L ALT (0-40) U/L Alkaline Phosphatase (39-117) U/L Total Protein (6.5-8.0) g/dL Albumin (3.5-5.0) g/dL Urine Color Urine Appearance Urine pH (5.0-8.0) Ur Specific Minerva (1.005-1.025) Urine Protein (NEG-TRACE) MG/DL Urine Glucose (UA) (NEG) MG/DL Urine Ketones (NEG) MG/DL Urine Blood (NEG) Urine Nitrite (NEG) Ur Leukocyte Esterase (NEG) Urine Opiates Screen Not Detected (Not Detect) Urine Fentanyl Screen POSITIVE H (Not Detect) Ur Barbiturates Screen Not Detected (Not Detect) Ur Phencyclidine Scrn Not Detected (Not Detect) Ur Amphetamines Screen Not Detected (Not Detect) U Benzodiazepines Scrn Not Detected (Not Detect) Urine Cocaine Screen POSITIVE H (Not Detect) U Marijuana (THC) Screen POSITIVE H (Not Detect) Ethyl Alcohol mg/dL COVID-19 (MIKHAIL) (Negative) COVID-19 Clin Com Influenza Type A (VAL) Negative Influenza Type B (VAL) Negative Influenza A & B Note See Note 01/15/22 01/15/22 Range/Units Unknown Unknown WBC (4.8-10.8) X10*3/uL RBC (4.60-5.80) X10*6/uL Hgb (14.0-18.0) g/dl Hct (42.0-52.0) % MCV (80.0-98.0) fL MCH (27.0-33.0) pg MCHC (31.0-36.0) g/dl RDW (11.0-16.0) % Plt Count (160-400) X10*3/uL MPV (9.4-12.4) fL Immature Gran % (Auto) (0.0-0.4) % Neut % (Auto) (45-73) % Lymph % (Auto) (20-40) % Mcnairy % (Auto) (2-11) % Eos % (Auto) (0-4) % Baso % (Auto) (0-2) % Lymph # (Auto) (1.2-4.9) X10*3/uL Mcnairy # (Auto) (0.1-1.2) X10*3/uL Eos # (Auto) (0.0-0.4) X10*3/uL Baso # (Auto) (0.0-0.2) X10*3/uL Abs Immat Gran (auto) (0.00-0.03) X10*3/uL Absolute Neuts (auto) (2.0-8.3) x10*3/uL Absolute Nucleated RBC (0.0-0.012) X10*3/uL Nucleated RBC % (auto) (0.0-0.2) /100WBC Sodium 139 (135-145) mmol/L Potassium 3.7 (3.3-5.1) mmol/L Chloride 104 (96-108) mmol/L Carbon Dioxide 19 L (22-29) mmol/L Anion Gap 20 (12-20) BUN 17 H (9-16) mg/dL Creatinine 1.06 (0.5-1.4) mg/dL Estim Creat Clear Calc 82.0 Estimated GFR > 60 Random Glucose 85 (60-115) mg/dL Calcium 9.9 D (8.4-10.2) mg/dL Magnesium 2.3 (1.6-2.6) mg/dL Total Bilirubin 0.4 (0.0-1.0) mg/dL Direct Bilirubin 0.2 (0.0-0.5) mg/dL AST 29 D (5-37) U/L ALT 24 (0-40) U/L Alkaline Phosphatase 68 (39-117) U/L Total Protein 8.3 H (6.5-8.0) g/dL Albumin 4.8 (3.5-5.0) g/dL Urine Color Urine Appearance Urine pH (5.0-8.0) Ur Specific Minerva (1.005-1.025) Urine Protein (NEG-TRACE) MG/DL Urine Glucose (UA) (NEG) MG/DL Urine Ketones (NEG) MG/DL Urine Blood (NEG) Urine Nitrite (NEG) Ur Leukocyte Esterase (NEG) Urine Opiates Screen (Not Detect) Urine Fentanyl Screen (Not Detect) Ur Barbiturates Screen (Not Detect) Ur Phencyclidine Scrn (Not Detect) Ur Amphetamines Screen (Not Detect) U Benzodiazepines Scrn (Not Detect) Urine Cocaine Screen (Not Detect) U Marijuana (THC) Screen (Not Detect) Ethyl Alcohol 47 mg/dL COVID-19 (MIKHAIL) (Negative) COVID-19 Clin Com Influenza Type A (VAL) Influenza Type B (VAL) Influenza A & B Note <FERNIE Tam - Last Filed: 01/15/22 18:12> Lab Results 01/15/22 01/15/22 01/15/22 Range/Units 15:56 19:06 19:21 WBC (4.8-10.8) X10*3/uL RBC (4.60-5.80) X10*6/uL Hgb (14.0-18.0) g/dl Hct (42.0-52.0) % MCV (80.0-98.0) fL MCH (27.0-33.0) pg MCHC (31.0-36.0) g/dl RDW (11.0-16.0) % Plt Count (160-400) X10*3/uL MPV (9.4-12.4) fL Immature Gran % (Auto) (0.0-0.4) % Neut % (Auto) (45-73) % Lymph % (Auto) (20-40) % Mcnairy % (Auto) (2-11) % Eos % (Auto) (0-4) % Baso % (Auto) (0-2) % Lymph # (Auto) (1.2-4.9) X10*3/uL Mcnairy # (Auto) (0.1-1.2) X10*3/uL Eos # (Auto) (0.0-0.4) X10*3/uL Baso # (Auto) (0.0-0.2) X10*3/uL Abs Immat Gran (auto) (0.00-0.03) X10*3/uL Absolute Neuts (auto) (2.0-8.3) x10*3/uL Absolute Nucleated RBC (0.0-0.012) X10*3/uL Nucleated RBC % (auto) (0.0-0.2) /100WBC Sodium (135-145) mmol/L Potassium (3.3-5.1) mmol/L Chloride (96-108) mmol/L Carbon Dioxide (22-29) mmol/L Anion Gap (12-20) BUN (9-16) mg/dL Creatinine (0.5-1.4) mg/dL Estim Creat Clear Calc Estimated GFR Random Glucose (60-115) mg/dL Calcium (8.4-10.2) mg/dL Magnesium (1.6-2.6) mg/dL Total Bilirubin (0.0-1.0) mg/dL Direct Bilirubin (0.0-0.5) mg/dL AST (5-37) U/L ALT (0-40) U/L Alkaline Phosphatase (39-117) U/L Total Protein (6.5-8.0) g/dL Albumin (3.5-5.0) g/dL Urine Color YELLOW Urine Appearance CLEAR Urine pH 5.5 (5.0-8.0) Ur Specific Minerva >= 1.030 H (1.005-1.025) Urine Protein TRACE (NEG-TRACE) MG/DL Urine Glucose (UA) NEG (NEG) MG/DL Urine Ketones 5 (NEG) MG/DL Urine Blood NEG (NEG) Urine Nitrite NEG (NEG) Ur Leukocyte Esterase NEG (NEG) Urine Opiates Screen (Not Detect) Urine Fentanyl Screen (Not Detect) Ur Barbiturates Screen (Not Detect) Ur Phencyclidine Scrn (Not Detect) Ur Amphetamines Screen (Not Detect) U Benzodiazepines Scrn (Not Detect) Urine Cocaine Screen (Not Detect) U Marijuana (THC) Screen (Not Detect) Ethyl Alcohol mg/dL COVID-19 (MIKHAIL) Negative (Negative) COVID-19 Clin Com See Note Influenza Type A (VAL) Cancelled Influenza Type B (VAL) Cancelled Influenza A & B Note Cancelled 01/15/22 01/15/22 01/15/22 Range/Units 19:21 19:30 Unknown WBC 10.9 H (4.8-10.8) X10*3/uL RBC 4.73 (4.60-5.80) X10*6/uL Hgb 14.6 (14.0-18.0) g/dl Hct 42.9 (42.0-52.0) % MCV 90.7 (80.0-98.0) fL MCH 30.9 (27.0-33.0) pg MCHC 34.0 (31.0-36.0) g/dl RDW 12.8 (11.0-16.0) % Plt Count 266 (160-400) X10*3/uL MPV 9.5 (9.4-12.4) fL Immature Gran % (Auto) 0.4 (0.0-0.4) % Neut % (Auto) 70.1 (45-73) % Lymph % (Auto) 17.9 L (20-40) % Mcnairy % (Auto) 10.3 (2-11) % Eos % (Auto) 0.9 (0-4) % Baso % (Auto) 0.4 (0-2) % Lymph # (Auto) 2.0 (1.2-4.9) X10*3/uL Mcnairy # (Auto) 1.1 (0.1-1.2) X10*3/uL Eos # (Auto) 0.1 (0.0-0.4) X10*3/uL Baso # (Auto) 0.0 (0.0-0.2) X10*3/uL Abs Immat Gran (auto) 0.04 H (0.00-0.03) X10*3/uL Absolute Neuts (auto) 7.7 (2.0-8.3) x10*3/uL Absolute Nucleated RBC 0.000 (0.0-0.012) X10*3/uL Nucleated RBC % (auto) 0.0 (0.0-0.2) /100WBC Sodium (135-145) mmol/L Potassium (3.3-5.1) mmol/L Chloride (96-108) mmol/L Carbon Dioxide (22-29) mmol/L Anion Gap (12-20) BUN (9-16) mg/dL Creatinine (0.5-1.4) mg/dL Estim Creat Clear Calc Estimated GFR Random Glucose (60-115) mg/dL Calcium (8.4-10.2) mg/dL Magnesium (1.6-2.6) mg/dL Total Bilirubin (0.0-1.0) mg/dL Direct Bilirubin (0.0-0.5) mg/dL AST (5-37) U/L ALT (0-40) U/L Alkaline Phosphatase (39-117) U/L Total Protein (6.5-8.0) g/dL Albumin (3.5-5.0) g/dL Urine Color Urine Appearance Urine pH (5.0-8.0) Ur Specific Minerva (1.005-1.025) Urine Protein (NEG-TRACE) MG/DL Urine Glucose (UA) (NEG) MG/DL Urine Ketones (NEG) MG/DL Urine Blood (NEG) Urine Nitrite (NEG) Ur Leukocyte Esterase (NEG) Urine Opiates Screen Not Detected (Not Detect) Urine Fentanyl Screen POSITIVE H (Not Detect) Ur Barbiturates Screen Not Detected (Not Detect) Ur Phencyclidine Scrn Not Detected (Not Detect) Ur Amphetamines Screen Not Detected (Not Detect) U Benzodiazepines Scrn Not Detected (Not Detect) Urine Cocaine Screen POSITIVE H (Not Detect) U Marijuana (THC) Screen POSITIVE H (Not Detect) Ethyl Alcohol mg/dL COVID-19 (MIKHAIL) (Negative) COVID-19 Clin Com Influenza Type A (VAL) Negative Influenza Type B (VAL) Negative Influenza A & B Note See Note 01/15/22 01/15/22 Range/Units Unknown Unknown WBC (4.8-10.8) X10*3/uL RBC (4.60-5.80) X10*6/uL Hgb (14.0-18.0) g/dl Hct (42.0-52.0) % MCV (80.0-98.0) fL MCH (27.0-33.0) pg MCHC (31.0-36.0) g/dl RDW (11.0-16.0) % Plt Count (160-400) X10*3/uL MPV (9.4-12.4) fL Immature Gran % (Auto) (0.0-0.4) % Neut % (Auto) (45-73) % Lymph % (Auto) (20-40) % Mcnairy % (Auto) (2-11) % Eos % (Auto) (0-4) % Baso % (Auto) (0-2) % Lymph # (Auto) (1.2-4.9) X10*3/uL Mcnairy # (Auto) (0.1-1.2) X10*3/uL Eos # (Auto) (0.0-0.4) X10*3/uL Baso # (Auto) (0.0-0.2) X10*3/uL Abs Immat Gran (auto) (0.00-0.03) X10*3/uL Absolute Neuts (auto) (2.0-8.3) x10*3/uL Absolute Nucleated RBC (0.0-0.012) X10*3/uL Nucleated RBC % (auto) (0.0-0.2) /100WBC Sodium 139 (135-145) mmol/L Potassium 3.7 (3.3-5.1) mmol/L Chloride 104 (96-108) mmol/L Carbon Dioxide 19 L (22-29) mmol/L Anion Gap 20 (12-20) BUN 17 H (9-16) mg/dL Creatinine 1.06 (0.5-1.4) mg/dL Estim Creat Clear Calc 82.0 Estimated GFR > 60 Random Glucose 85 (60-115) mg/dL Calcium 9.9 D (8.4-10.2) mg/dL Magnesium 2.3 (1.6-2.6) mg/dL Total Bilirubin 0.4 (0.0-1.0) mg/dL Direct Bilirubin 0.2 (0.0-0.5) mg/dL AST 29 D (5-37) U/L ALT 24 (0-40) U/L Alkaline Phosphatase 68 (39-117) U/L Total Protein 8.3 H (6.5-8.0) g/dL Albumin 4.8 (3.5-5.0) g/dL Urine Color Urine Appearance Urine pH (5.0-8.0) Ur Specific Minerva (1.005-1.025) Urine Protein (NEG-TRACE) MG/DL Urine Glucose (UA) (NEG) MG/DL Urine Ketones (NEG) MG/DL Urine Blood (NEG) Urine Nitrite (NEG) Ur Leukocyte Esterase (NEG) Urine Opiates Screen (Not Detect) Urine Fentanyl Screen (Not Detect) Ur Barbiturates Screen (Not Detect) Ur Phencyclidine Scrn (Not Detect) Ur Amphetamines Screen (Not Detect) U Benzodiazepines Scrn (Not Detect) Urine Cocaine Screen (Not Detect) U Marijuana (THC) Screen (Not Detect) Ethyl Alcohol 47 mg/dL COVID-19 (MIKHAIL) (Negative) COVID-19 Clin Com Influenza Type A (VAL) Influenza Type B (VAL) Influenza A & B Note <FERNIE Navarrete - Last Filed: 01/15/22 22:35> Critical Care Time Critical Care Time Critical Care Time: No <FERNIE Navarrete - Last Filed: 01/15/22 22:35> Discharge Plan Discharge Clinical Impression: Acute psychosis <FERNIE Tam - Last Filed: 01/15/22 18:12> Patient Disposition: Admitted As Inpatient <FERNIE Tam - Last Filed: 01/15/22 18:12> Prescriptions: No Action cefpodoxime 200 mg tablet 200 mg PO Q12H Qty: 20 0RF Rx Instructions: must administer with a meal/food oxycodone-acetaminophen [Percocet] 5-325 mg tablet 1 tab PO TID PRN (Reason: pain) Qty: 9 0RF naproxen 500 mg tablet 500 mg PO BID PRN (Reason: pain) Qty: 20 0RF Biktarvy 50-200-25 mg tablet 1 tab PO DAILY 0RF tramadol 50 mg tablet 50 mg PO Q6H PRN (Reason: pain (scale score 4-6)) Qty: 14 0RF tamsulosin 0.4 mg capsule 0.4 mg PO BEDTIME 14 Days Qty: 14 0RF levofloxacin 500 mg tablet 500 mg PO DAILY 7 Days Qty: 7 0RF prednisone 20 mg tablet 20 mg PO DAILY 7 Days Qty: 7 0RF tamsulosin [Flomax] 0.4 mg capsule 0.4 mg PO DAILY 14 Days Qty: 14 0RF <FERNIE Tam - Last Filed: 01/15/22 18:12>
[2022-01-15 16:19] LABS: COVID-19 Test Negative (Negative); IDNOW Serial# 16C4AD1C
[2022-01-15] MEDS: diphenhydrAMINE HCL 25 MG TABLET 50 MG PO (17:19)
[2022-01-15] MEDS: HaloperidoL 5 MG TABLET PO (17:19)
[2022-01-15] MEDS: LORazepam 1 MG TABLET 2 MG PO (17:19)
--- NOTE | 2022-01-15 17:57 | PC.NURSE ---
Patient at 1700 tried to elope out the door refused to listen to staff and security to go back to his room. Was assisted back to room by security. Patient was yelling and screaming at staff provider at bedside verbal order given for behavioral restraint. Patient was restraint to bed 1:[address] was offered po meds and was compliant with po meds to ease anxiety. At this time 1:[address] respiration are even and unlabored vitals are baseline. patient offered drink and bathroom x 2. Will continue to monitor.
--- NOTE | 2022-01-15 18:31 | PC.NURSE ---
Patient restaints were released completely by 1829. skin check was completed no issues. patient given dinner and ice pitcher, no s/s of resp distress at this time.
--- NOTE | 2022-01-15 18:44 | MHC.CARE ---
CARE Team completed smartsheet for pt.
[2022-01-15 19:00] LABS: MANUAL DIFF FLAG NO
[2022-01-15 19:03] LABS: Basophils Percent Auto 0.4 % (0-2); Eosinophils Absolute Auto 0.1 X10*3/uL (0.0-0.4); Eosinophils Percent Auto 0.9 % (0-4); Hematocrit 42.9 % (42.0-52.0); Hemoglobin 14.6 g/dl (14.0-18.0); Imm Gran Abs Auto 0.04 X10*3/uL (0.00-0.03); Imm Gran Pct Auto 0.4 % (0.0-0.4); Lymphocytes Percent Auto 17.9 % (20-40); Mean Corpuscular Hemoglobin 30.9 pg (27.0-33.0); Mean Corpuscular Volume 90.7 fL (80.0-98.0); Mean Platelet Volume 9.5 fL (9.4-12.4); Monocytes Absolute Auto 1.1 X10*3/uL (0.1-1.2); Monocytes Percent Auto 10.3 % (2-11); Neutrophils Absolute Auto 7.7 x10*3/uL (2.0-8.3); Neutrophils Percent Auto 70.1 % (45-73); Platelet Count 266 X10*3/uL (160-400); Red Blood Count 4.73 X10*6/uL (4.60-5.80); Red Cell Distribution Width 12.8 % (11.0-16.0); White Blood Count 10.9 X10*3/uL (4.8-10.8)
[2022-01-15 19:30] LABS: Ethanol 47 mg/dL
[2022-01-15 19:33] LABS: Appearance Urine CLEAR; Color Urine YELLOW; Glucose Urine UA NEG (NEG); Leukocyte Esterase Urine NEG (NEG); Nitrite Urine NEG (NEG); PH 5.5 (5.0-8.0); Specific Gravity - Urine >= 1.030 (1.005-1.025); Urine Blood NEG (NEG); Urine Ketones 5 MG/DL (NEG); Urine Protein TRACE MG/DL (NEG-TRACE)
[2022-01-15 19:34] LABS: Alanine Aminotransferase 24 U/L (0-40); Albumin Level 4.8 g/dL (3.5-5.0); Alkaline Phosphatase 68 U/L (39-117); Anion Gap 20 (12-20); Aspartate Amino Transferase 29 U/L (5-37); Bilirubin Direct 0.2 mg/dL (0.0-0.5); Bilirubin Total 0.4 mg/dL (0.0-1.0); Blood Urea Nitrogen 17 mg/dL (9-16); Calcium 9.9 mg/dL (8.4-10.2); Carbon Dioxide 19 mmol/L (22-29); Chloride 104 mmol/L (96-108); Estimated Glomerular Filt Rate > 60; Glucose Random 85 mg/dL (60-115); Magnesium 2.3 mg/dL (1.6-2.6); Potassium 3.7 mmol/L (3.3-5.1); Sodium 139 mmol/L (135-145); Total Protein 8.3 g/dL (6.5-8.0)
[2022-01-15 19:47] LABS: Amphetamine Screen Urine Not Detected (Not Detect); Barbiturates, Urine Not Detected (Not Detect); Benzodiazepines Screen Urine Not Detected (Not Detect); Cannabinoid Screen Urine POSITIVE (Not Detect); Cocaine Screen Urine POSITIVE (Not Detect); Fentanyl, urine POSITIVE (Not Detect); Opiate Screen Urine Not Detected (Not Detect); Phencyclidine Screen Urine Not Detected (Not Detect)
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
[2022-01-15] MEDS: OLANZapine 10 MG TABLET PO (19:53)
[2022-01-15 19:58] LABS: Influenza A Negative (Negative); Influenza B2 Negative (Negative)
[2022-01-15] MEDS: Acetaminophen 325 MG TABLET PO (21:44)
--- NOTE | 2022-01-15 22:54 | MHC.CARE ---
Per pt's provider pt is being medically admitted. Pt was seen by the CARE team and Leah Pringle NP. Plan was for IPLOC. Once pt is medically cleared, CARE team will need to be re-consulted.
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
--- NOTE | 2022-01-15 23:11 | P.HPHOSP_ITS ---
History of Present Illness Date of Service: 01/15/22 Chief Complaint: Tran/hallucinations 26-year-old male with a past medical history of HIV, bipolar disorder, kidney stones presented to the hospital with a chief complaint of acute manic episode. Patient unable to give the history. Poor historian secondary to his manic/acute psychotic episode. Per ER team patient when presented, was severely agitated, complaining of auditory and visual hallucinations, talking to himself; noted to be tachycardic; also had temperature of 100.9 F; Patient initial being managed as Behavioral Health related. Later patient d eveloped fever. Labs essentially benign. Chest x-ray showed right lung pneumonia; patient was given antibiotics. Admitted for further management. For acute manic episode patient was given Haldol, Zyprexa, psychiatry has seen the patient in the ER. Patient at one point was also in physical restraints subsequently removed. At the time of my interview patient is slightly com; but not involved in the interview. Appears comfortable. Review of all other systems is limited PMFSH Medical History HIV (human immunodeficiency virus infection) Kidney stones Pertinent family history: Patient unable to provide information Surgical History Hx of cystoscopy Hx of endoscopy Social History Alcohol intake: never Advance Directives: No Advance Directives Information Provided: Yes Meds Allergies Allergy/AdvReac Type Severity Reaction Status Date / Time sulfamethoxazole Allergy Mild HIVES Verified 12/09/20 19:14 [From BACTRIM] trimethoprim [From BACTRIM] Allergy Mild HIVES Verified 12/09/20 19:14 Active Medications: Current Medications Olanzapine (Olanzapine 5 Mg Tablet) 5 mg PO BID PRN PRN Reason: anxiety, agitation Home Medications Medication Instructions Recorded Confirmed Last Taken Type bictegravir 50 mg-emtricitabine 1 tab PO DAILY 01/28/21 01/28/21 02/04/21 History 200 mg-tenofovir alafenam 25 mg tablet (Biktarvy) Physical Exam Vital Signs and Narrative: Vital Signs: Last Vital Signs Temp 100.6 F H 01/15/22 15:12 Pulse 130 H 01/15/22 15:12 Resp 18 01/15/22 15:12 BP 145/95 H 01/15/22 15:12 BMI result Body Mass Index 20.0 Gen: Appears be in no acute distress HEENT: NCAT, Moist mucosa. Pulmonary: Coarse breath sounds, fair air entry CVS: Normal S1-S2 Abdomen: BS+, Soft, Nontender Extremities: Warm well perfused Neuro: Alert and awake. Results Labs CBC and Chem 7: 01/15/22 Unknown 01/15/22 Unknown Labs: Laboratory Results - last 24 hr 01/15/22 01/15/22 01/15/22 15:56 19:06 19:21 MCV MCH MCHC RDW Plt Count MPV Immature Gran % (Auto) Neut % (Auto) Lymph % (Auto) [place] % (Auto) Eos % (Auto) Baso % (Auto) Lymph # (Auto) [place] # (Auto) Eos # (Auto) Baso # (Auto) Abs Immat Gran (auto) Absolute Neuts (auto) Absolute Nucleated RBC Nucleated RBC % (auto) Anion Gap Estim Creat Clear Calc Estimated GFR Random Glucose Calcium Magnesium Total Bilirubin Direct Bilirubin AST ALT Alkaline Phosphatase Total Protein Albumin Urine Color YELLOW Urine Appearance CLEAR Urine pH 5.5 Ur Specific [place] >= 1.030 H Urine Protein TRACE Urine Glucose (UA) NEG Urine Ketones 5 Urine Blood NEG Urine Nitrite NEG Ur Leukocyte Esterase NEG Urine Opiates Screen Urine Fentanyl Screen Ur Barbiturates Screen Ur Phencyclidine Scrn Ur Amphetamines Screen U Benzodiazepines Scrn Urine Cocaine Screen U Marijuana (THC) Screen Ethyl Alcohol COVID-19 (MIKHAIL) Negative COVID-19 Clin Com See Note Influenza Type A (VAL) Cancelled Influenza Type B (VAL) Cancelled Influenza A & B Note Cancelled 01/15/22 01/15/22 01/15/22 19:21 19:30 Unknown MCV 90.7 MCH 30.9 MCHC 34.0 RDW 12.8 Plt Count 266 MPV 9.5 Immature Gran % (Auto) 0.4 Neut % (Auto) 70.1 Lymph % (Auto) 17.9 L [place] % (Auto) 10.3 Eos % (Auto) 0.9 Baso % (Auto) 0.4 Lymph # (Auto) 2.0 [place] # (Auto) 1.1 Eos # (Auto) 0.1 Baso # (Auto) 0.0 Abs Immat Gran (auto) 0.04 H Absolute Neuts (auto) 7.7 Absolute Nucleated RBC 0.000 Nucleated RBC % (auto) 0.0 Anion Gap Estim Creat Clear Calc Estimated GFR Random Glucose Calcium Magnesium Total Bilirubin Direct Bilirubin AST ALT Alkaline Phosphatase Total Protein Albumin Urine Color Urine Appearance Urine pH Ur Specific [place] Urine Protein Urine Glucose (UA) Urine Ketones Urine Blood Urine Nitrite Ur Leukocyte Esterase Urine Opiates Screen Not Detected Urine Fentanyl Screen POSITIVE H Ur Barbiturates Screen Not Detected Ur Phencyclidine Scrn Not Detected Ur Amphetamines Screen Not Detected U Benzodiazepines Scrn Not Detected Urine Cocaine Screen POSITIVE H U Marijuana (THC) Screen POSITIVE H Ethyl Alcohol COVID-19 (MIKHAIL) COVID-19 Clin Com Influenza Type A (VAL) Negative Influenza Type B (VAL) Negative Influenza A & B Note See Note 01/15/22 01/15/22 Unknown Unknown MCV MCH MCHC RDW Plt Count MPV Immature Gran % (Auto) Neut % (Auto) Lymph % (Auto) [place] % (Auto) Eos % (Auto) Baso % (Auto) Lymph # (Auto) [place] # (Auto) Eos # (Auto) Baso # (Auto) Abs Immat Gran (auto) Absolute Neuts (auto) Absolute Nucleated RBC Nucleated RBC % (auto) Anion Gap 20 Estim Creat Clear Calc 82.0 Estimated GFR > 60 Random Glucose 85 Calcium 9.9 D Magnesium 2.3 Total Bilirubin 0.4 Direct Bilirubin 0.2 AST 29 D ALT 24 Alkaline Phosphatase 68 Total Protein 8.3 H Albumin 4.8 Urine Color Urine Appearance Urine pH Ur Specific [place] Urine Protein Urine Glucose (UA) Urine Ketones Urine Blood Urine Nitrite Ur Leukocyte Esterase Urine Opiates Screen Urine Fentanyl Screen Ur Barbiturates Screen Ur Phencyclidine Scrn Ur Amphetamines Screen U Benzodiazepines Scrn Urine Cocaine Screen U Marijuana (THC) Screen Ethyl Alcohol 47 COVID-19 (MIKHAIL) COVID-19 Clin Com Influenza Type A (VAL) Influenza Type B (VAL) Influenza A & B Note Imaging Radiologist's Impressions: Impressions Chest X-Ray 01/15/22 21:44 IMPRESSION: Possible subtle airspace opacity at the right lung base. This could represent developing pneumonitis/pneumonia. Assessment and Plan (1) Acute psychosis: Status: Acute (2) Pneumonia: Status: Acute Plan 26-year-old male with a past medical history of HIV, bipolar disorder, kidney stones presented to the hospital with a chief complaint of acute manic episode. Later developed fever. Chest x-ray showed pneumonia. Admitted for further management. Pneumonia: Continue ceftriaxone and azithromycin. Follow up cultures. IV fluids. History of HIV: Unknown CD4 count. Patient on Biktarvy. Will continue. Id consult for further recommendations. Acute psychosis: Patient on presentation in many a with visual and auditory hallucinations. Has been seen by Psychiatry. Received Haldol, Zyprexa in the ER. Physical restraints were removed. Psychiatric consult for close follow-up. DVT prophylaxis: Lovenox Code status: Full code Quality Stroke Does the patient have a stroke diagnosis?: No VTE Prior VTE?: No VTE Risk Level:: Medical - moderate - high VTE Device Contraindication: Treatment Not Indicated VTE Drug Contraindication: N/A - Med Ordered
[2022-01-15 23:13] VITALS: BP 102/42; PULSE 83; RESP 17; TEMP 36.6; O2SAT 96
[2022-01-15 23:20] LABS: Lactic Acid 0.6 mmol/L (0.5-2.0)
--- NOTE | 2022-01-16 00:12 | PC.NURSE ---
Took report from Shanell to assume care of PT, Pt resting, sitter at bedside, safety maintained, this RN continues to monitor.
[2022-01-16] MEDS: Azithromycin 500 MG TABLET PO (01:28)
[2022-01-16] MEDS: Dextrose 5 % and 0.9 % NaCl 1,000 ML 100 ML IVCONT (01:40)
[2022-01-16] MEDS: cefTRIAXone sodium 1 GM in 0.9 % Sodium Chloride 50 ML IV (01:42)
[2022-01-16] MEDS: Melatonin 3 MG TABLET 6 MG PO (01:42)
[2022-01-16] MEDS: 0.9 % Sodium Chloride Flush 3 ML SYRINGE IVFLUSH (02:04)
[2022-01-16 05:52] VITALS: BP 96/59; PULSE 77; RESP 14; TEMP 36.9; O2SAT 97
--- NOTE | 2022-01-16 06:30 | PC.NURSE ---
Pt sleeping, Pt slept through the night, sitter at bedside, safety maintained, this RN continues to monitir.
[2022-01-16 07:09] LABS: MANUAL DIFF FLAG NO
[2022-01-16 07:12] LABS: Basophils Percent Auto 0.5 % (0-2); Eosinophils Absolute Auto 0.4 X10*3/uL (0.0-0.4); Eosinophils Percent Auto 5.9 % (0-4); Hematocrit 38.2 % (42.0-52.0); Hemoglobin 12.8 g/dl (14.0-18.0); Imm Gran Abs Auto 0.01 X10*3/uL (0.00-0.03); Imm Gran Pct Auto 0.1 % (0.0-0.4); Lymphocytes Absolute Auto 1.9 X10*3/uL (1.2-4.9); Lymphocytes Percent Auto 26.4 % (20-40); Mean Corpuscular HGB Conc 33.5 g/dl (31.0-36.0); Mean Corpuscular Hemoglobin 31.1 pg (27.0-33.0); Mean Corpuscular Volume 92.7 fL (80.0-98.0); Mean Platelet Volume 9.8 fL (9.4-12.4); Monocytes Percent Auto 13.3 % (2-11); Neutrophils Percent Auto 53.8 % (45-73); Platelet Count 218 X10*3/uL (160-400); Red Blood Count 4.12 X10*6/uL (4.60-5.80); Red Cell Distribution Width 12.9 % (11.0-16.0); White Blood Count 7.4 X10*3/uL (4.8-10.8)
[2022-01-16 07:35] LABS: Anion Gap 14 (12-20); Blood Urea Nitrogen 17 mg/dL (9-16); Calcium 8.9 mg/dL (8.4-10.2); Carbon Dioxide 23 mmol/L (22-29); Chloride 108 mmol/L (96-108); Creatinine Clr Calc Pharmacy 86.9; Estimated Glomerular Filt Rate > 60; Glucose Random 87 mg/dL (60-115); Potassium 3.6 mmol/L (3.3-5.1); Sodium 141 mmol/L (135-145)
[2022-01-16 07:53] VITALS: BP 89/47; PULSE 64; RESP 16; O2SAT 99
[2022-01-16 08:32] LABS: Lactate Dehydrogenase 163 U/L (118-273)
--- NOTE | 2022-01-16 08:40 | PC.NURSE ---
This RN entered patient's room to give medications; patient upset, speaking to phlebotomy about how he does not want to be here, he will walk out. This RN explained that patient was expressing SI and that we are concerned for his safety and that we are giving him antibiotics; patient still angry, stating that he does not want to be here and that he always has SI. Hospitalist notified and requested to come to bedside.
--- NOTE | 2022-01-16 08:42 | PHA.MEDREC ---
med rec based only on recent pharmacy claim history, not able to get meaningful clear history from patient Pharmacy Consult ? Medication Reconciliation Pharmacy has completed the medication reconciliation.
[2022-01-16 08:59] VITALS: BP 118/52; PULSE 76; RESP 14; O2SAT 99
[2022-01-16 09:01] LABS: Procalcitonin 0.08 ng/mL
--- NOTE | 2022-01-16 09:06 | MHC.CARE ---
Consult CARE Team when medically cleared for assessment and treatment recommendations.
[2022-01-16] MEDS: 0.9 % Sodium Chloride 1,000 ML 100 ML IVCONT (10:33)
--- NOTE | 2022-01-16 11:04 | HO.PM.IMPN ---
Subjective Subjective Date of Service: 01/16/22 Interval History: Minimally cooperative with interview and exam. Refuses examination of mouth. Endorses cough + dyspnea. No fever. States he takes his Biktarvy consistently. Thinks his last CD4 was in the 500s a few weeks ago. Review of Systems Review of Systems: Yes all other systems are reviewed and are negative Physical Exam Vital Signs: Vital Signs: Last Vital Signs Temp 98.4 F 01/16/22 05:52 Pulse 76 01/16/22 08:59 Resp 14 01/16/22 08:59 BP 118/52 L 01/16/22 08:59 Pulse Ox 99 01/16/22 08:59 BMI result Body Mass Index 20.0 Gen: in no acute distress HEENT: sclera anicteric, refuses oral exam Neck: supple Lungs: clear to auscultation bilaterally Heart: regular rate and rhythm, no murmurs Abd: soft, non-tender, non-distended Ext: no edema Skin: warm/well-perfused Neuro: alert and oriented x3 Psych: restricted affect Objective Data Active Medications Acetaminophen (Acetaminophen 325 Mg Tablet) 650 mg PO Q6H PRN PRN Reason: Pain, Mild (Pain Scale 1-3) Benzonatate (Benzonatate 100 Mg Capsule) 100 mg PO TID PRN PRN Reason: Cough Bictegravir/Emtricitabine/Tenofovir (Bictegrav/Emtricit/Tenofov Ala Tablet) 1 tab PO DAILY [facility] Enoxaparin Sodium (Enoxaparin Sodium 40 Mg/0.4 Ml Syringe) 40 mg SUBCUT Q24H [facility] Last Admin: 01/16/22 08:46 Dose: Not Given Documented by: BEATRIZ Non-Admin Reason: Patient Refused Ceftriaxone Sodium 1 gm/ (Sodium Chloride) 50 mls @ 100 mls/hr IV Q24H [facility] Azithromycin 500 mg/ Sodium (Chloride) 250 mls @ 125 mls/hr IV Q24H [facility] Sodium Chloride (Ns) 1,000 mls @ 100 mls/hr IVCONT .Q10H [facility] Last Admin: 01/16/22 10:33 Dose: 100 mls/hr Documented by: BEATRIZ Melatonin (Melatonin 3 Mg Tablet) 6 mg PO BEDTIME PRN PRN Reason: Insomnia Last Admin: 01/16/22 01:42 Dose: 6 mg Documented by: NAOMI Olanzapine (Olanzapine 5 Mg Tablet) 5 mg PO BID PRN PRN Reason: anxiety, agitation Senna (Sennosides 8.6 Mg Tablet) 17.2 mg PO BEDTIME PRN PRN Reason: Constipation Sodium Chloride (0.9 % Sodium Chloride Flush 3 Ml Syringe) 3 ml IVFLUSH QSHIFT NANETTE Last Admin: 01/16/22 07:39 Dose: Not Given Documented by: BEATRIZ Non-Admin Reason: IV Running Labs CBC & Chem 7: 01/16/22 07:00 01/16/22 07:00 Labs: Laboratory Results - last 24 hr 01/15/22 01/15/22 01/15/22 15:56 19:06 19:21 MCV MCH MCHC RDW Plt Count MPV Immature Gran % (Auto) Neut % (Auto) Lymph % (Auto) [place] % (Auto) Eos % (Auto) Baso % (Auto) Lymph # (Auto) [place] # (Auto) Eos # (Auto) Baso # (Auto) Abs Immat Gran (auto) Absolute Neuts (auto) Absolute Nucleated RBC Nucleated RBC % (auto) Anion Gap Estim Creat Clear Calc Estimated GFR Random Glucose Lactic Acid Calcium Magnesium Total Bilirubin Direct Bilirubin AST ALT Alkaline Phosphatase Lactate Dehydrogenase Total Protein Albumin Procalcitonin Urine Color YELLOW Urine Appearance CLEAR Urine pH 5.5 Ur Specific [place] >= 1.030 H Urine Protein TRACE Urine Glucose (UA) NEG Urine Ketones 5 Urine Blood NEG Urine Nitrite NEG Ur Leukocyte Esterase NEG Urine Opiates Screen Urine Fentanyl Screen Ur Barbiturates Screen Ur Phencyclidine Scrn Ur Amphetamines Screen U Benzodiazepines Scrn Urine Cocaine Screen U Marijuana (THC) Screen Ethyl Alcohol COVID-19 ([facility]) Negative COVID-19 Clin Com See Note Influenza Type A (VAL) Cancelled Influenza Type B (VAL) Cancelled Influenza A & B Note Cancelled 01/15/22 01/15/22 01/15/22 19:21 19:30 22:57 MCV MCH MCHC RDW Plt Count MPV Immature Gran % (Auto) Neut % (Auto) Lymph % (Auto) [place] % (Auto) Eos % (Auto) Baso % (Auto) Lymph # (Auto) [place] # (Auto) Eos # (Auto) Baso # (Auto) Abs Immat Gran (auto) Absolute Neuts (auto) Absolute Nucleated RBC Nucleated RBC % (auto) Anion Gap Estim Creat Clear Calc Estimated GFR Random Glucose Lactic Acid 0.6 Calcium Magnesium Total Bilirubin Direct Bilirubin AST ALT Alkaline Phosphatase Lactate Dehydrogenase Total Protein Albumin Procalcitonin Urine Color Urine Appearance Urine pH Ur Specific [place] Urine Protein Urine Glucose (UA) Urine Ketones Urine Blood Urine Nitrite Ur Leukocyte Esterase Urine Opiates Screen Not Detected Urine Fentanyl Screen POSITIVE H Ur Barbiturates Screen Not Detected Ur Phencyclidine Scrn Not Detected Ur Amphetamines Screen Not Detected U Benzodiazepines Scrn Not Detected Urine Cocaine Screen POSITIVE H U Marijuana (THC) Screen POSITIVE H Ethyl Alcohol COVID-19 ([facility]) COVID-19 Clin Com Influenza Type A (VAL) Negative Influenza Type B (VAL) Negative Influenza A & B Note See Note 01/15/22 01/15/22 01/15/22 Unknown Unknown Unknown MCV 90.7 MCH 30.9 MCHC 34.0 RDW 12.8 Plt Count 266 MPV 9.5 Immature Gran % (Auto) 0.4 Neut % (Auto) 70.1 Lymph % (Auto) 17.9 L [place] % (Auto) 10.3 Eos % (Auto) 0.9 Baso % (Auto) 0.4 Lymph # (Auto) 2.0 [place] # (Auto) 1.1 Eos # (Auto) 0.1 Baso # (Auto) 0.0 Abs Immat Gran (auto) 0.04 H Absolute Neuts (auto) 7.7 Absolute Nucleated RBC 0.000 Nucleated RBC % (auto) 0.0 Anion Gap 20 Estim Creat Clear Calc 82.0 Estimated GFR > 60 Random Glucose 85 Lactic Acid Calcium 9.9 D Magnesium 2.3 Total Bilirubin 0.4 Direct Bilirubin 0.2 AST 29 D ALT 24 Alkaline Phosphatase 68 Lactate Dehydrogenase Total Protein 8.3 H Albumin 4.8 Procalcitonin Urine Color Urine Appearance Urine pH Ur Specific [place] Urine Protein Urine Glucose (UA) Urine Ketones Urine Blood Urine Nitrite Ur Leukocyte Esterase Urine Opiates Screen Urine Fentanyl Screen Ur Barbiturates Screen Ur Phencyclidine Scrn Ur Amphetamines Screen U Benzodiazepines Scrn Urine Cocaine Screen U Marijuana (THC) Screen Ethyl Alcohol 47 COVID-19 ([facility]) COVID-19 Clin Com Influenza Type A (VAL) Influenza Type B (VAL) Influenza A & B Note 01/16/22 01/16/22 01/16/22 07:00 07:00 07:00 MCV 92.7 MCH 31.1 MCHC 33.5 RDW 12.9 Plt Count 218 MPV 9.8 Immature Gran % (Auto) 0.1 Neut % (Auto) 53.8 Lymph % (Auto) 26.4 [place] % (Auto) 13.3 H Eos % (Auto) 5.9 H Baso % (Auto) 0.5 Lymph # (Auto) 1.9 [place] # (Auto) 1.0 Eos # (Auto) 0.4 Baso # (Auto) 0.0 Abs Immat Gran (auto) 0.01 Absolute Neuts (auto) 4.0 Absolute Nucleated RBC 0.000 Nucleated RBC % (auto) 0.0 Anion Gap 14 Estim Creat Clear Calc 86.9 Estimated GFR > 60 Random Glucose 87 Lactic Acid Calcium 8.9 D Magnesium Total Bilirubin Direct Bilirubin AST ALT Alkaline Phosphatase Lactate Dehydrogenase 163 Total Protein Albumin Procalcitonin 0.08 Urine Color Urine Appearance Urine pH Ur Specific [place] Urine Protein Urine Glucose (UA) Urine Ketones Urine Blood Urine Nitrite Ur Leukocyte Esterase Urine Opiates Screen Urine Fentanyl Screen Ur Barbiturates Screen Ur Phencyclidine Scrn Ur Amphetamines Screen U Benzodiazepines Scrn Urine Cocaine Screen U Marijuana (THC) Screen Ethyl Alcohol COVID-19 ([facility]IL) COVID-19 Clin Com Influenza Type A (VAL) Influenza Type B (VAL) Influenza A & B Note Assessment and Plan (1) Acute psychosis: Status: Acute (2) Pneumonia: Status: Acute Plan hospital d#2 26yo M with HIV presenting with susan + psychosis, developed fever and found to have PNA # PNA - ceftriaxone + azithromycin d#2, follow BCx + trend PCT. chest CT pending # HIV - continue Biktarvy, check CD4 + viral load. if CD4 really is 500, he is not at risk of PCP # polysubstance abuse - Utox positive for cocaine + fentanyl. pt denies use. CARE Team + Addiction Medicine consultations # susan/psychosis - will need psychiatry re-evaluation when medically cleared In my clinical judgment, the patient requires continued hospitalization for the following reasons: IV antibiotics, section 12 hold Quality Stroke Does the patient have a stroke diagnosis?: No VTE Prior VTE?: No VTE Risk Level:: Medical - moderate - high VTE Device Contraindication: Treatment Not Indicated VTE Drug Contraindication: N/A - Med Ordered
[2022-01-16] MEDS: Bictegrav/Emtricit/Tenofov Ala TABLET 1 TAB PO (11:24)
[2022-01-16 12:35] VITALS: BP 92/59; PULSE 57; RESP 16; O2SAT 97
--- NOTE | 2022-01-16 13:07 | MHC.RECOVSUP ---
Recovery Support note: Patient is a 26 year old Bangladeshi speaking male who presented to [facility] manic and delusional. This freelance writer met with patient to discuss his substance use and treatment options. Patient was sleeping when this freelance writer entered the room, however patient woke briefly after repeatedly saying his name. Patient reports he does not use opiates however does report using cocaine and alcohol. Discussed with patient that he tested positive for fentanyl. Patient continues to deny opiate use and reports no history of opiate use. Informed patient that fentanyl is frequently found in cocaine supplies and patient acknowledged that this is likely why he tested positive for fentanyl. Offered patient support and the opportunity to discuss his alcohol and cocaine use. Patient declines, indicating that he is not interested in reducing his consumption at this time. Patient reports no withdrawal symptoms at this time. Encouraged patient to inform staff if withdrawal symptoms occur. Patient acknowledged. Discussed case with Kaila JOYCE.
--- NOTE | 2022-01-16 15:06 | MHC.CM.PN ---
Attempted to meet with patient in regards to discharge planning. Patient currently sleeping. No family present. Will attempt to meet again. Continue to monitor for d/c needs.
[2022-01-16] MEDS: levoFLOXacin 750 MG TABLET PO (16:42)
[2022-01-16 16:50] VITALS: BP 98/63; PULSE 64; RESP 16; O2SAT 99
--- NOTE | 2022-01-16 18:24 | MHC.CARE ---
Smart Sheet Submitted
--- NOTE | 2022-01-16 18:25 | PC.NURSE ---
Patient wanting IV removed, threatened to remove it himself. Spoke with provider who states patient does not require another IV.
--- NOTE | 2022-01-16 19:00 | MHC.CARE ---
CARE team asked to consult on pt in room 15 due to wanting to leave and was now medically cleared. Per record pt presented with susan sxs upon arrival and then required further tx for suspected infection with a plan for medical admission. Per record and ED staff report, pt later attmepted to elope from the ED and was asking to leave. Pt was seen by (Psych) CR[employer] FR[employer] OFFICE DEVELOPER due to escalation and q/o a hold. Pt was then placed on a section 12a due to acuity (noted delusions and hypomania). This evening it was reported that pt asked to leave again and the CARE team was asked to see pt for risk and q/o removing the section. T/w met with pt for risk assessment and pt presented with what appeared to be manic sxs, was acutely disorganized, lacked insight and poor judgment. Pts rationale for seeking to be discharged was that he came here only to get a lie detector test . He then stated this test was to interview his multiple personalities. T/w consulted on-call Psychiatrist Dr Pantoja and presented case details and nature of CARE consult and what was observed by t/w to present with risk to himself or others if discharged without formal crisis assessment. It was agreed that pt would remain on section 12a and crisis consult ordered. BHN was sent Smartsheet and will call back with ETA. T/w spoke with Dr Chou who is following pt as a medical pt while located in the ED.
[2022-01-16] MEDS: Nicotine 21 MG PATCH.TD24 TRANSDERMA (19:04)
[2022-01-16] MEDS: Nicotine Polacrilex 2 MG GUM BUCCAL (19:05)
--- NOTE | 2022-01-16 21:52 | W.PM.IDCN ---
History of Present Illness Data of Consult Service Date: 01/16/22 Requesting physician: Erick Chou Primary Care Provider: Unknown Physician HPI Reason for consult: pneumonia He presents to hospital wanting to share information about how the brain works that he just had as a revelation . He has been taking fentanyl,cocaine and marijuana. He has heart rate of 130 and temperature of 100.6. He has no cough or shortness of breath. He has well controlled HIV with viral load undetectable and I had seen him at [facility] on 12/31/2021 and he was doing well. Review of Systems Review of Systems: Yes all other systems are reviewed and are negative PMFSH Past Medical History Medical History (Updated 01/16/22 @ 22:05 by Yasmine Jacobs MD) HIV (human immunodeficiency virus infection) Kidney stones Family History Family history: reviewed and not pertinent Surgical History Surgical History Hx of cystoscopy Hx of endoscopy Social History Social History Alcohol intake: never Patient Tobacco Use Status: Current everyday Tobacco user Smoked in Last 30 Days: Yes Use of substances other than those prescribed or required for medical reasons: Yes Substance Use Type: Crack/Cocaine and Marijuana Substance Use Frequency: Daily Advance Directives: No Advance Directives Information Provided: Yes Meds Allergies Allergy/AdvReac Type Severity Reaction Status Date / Time sulfamethoxazole Allergy Mild HIVES Verified 12/09/20 19:14 [From BACTRIM] trimethoprim [From BACTRIM] Allergy Mild HIVES Verified 12/09/20 19:14 Active Medications: Current Medications Acetaminophen (Acetaminophen 325 Mg Tablet) 650 mg PO Q6H PRN PRN Reason: Pain, Mild (Pain Scale 1-3) Benzonatate (Benzonatate 100 Mg Capsule) 100 mg PO TID PRN PRN Reason: Cough Bictegravir/Emtricitabine/Tenofovir (Bictegrav/Emtricit/Tenofov Ala Tablet) 1 tab PO DAILY [facility] Last Admin: 01/16/22 11:24 Dose: 1 tab Documented by: Enoxaparin Sodium (Enoxaparin Sodium 40 Mg/0.4 Ml Syringe) 40 mg SUBCUT Q24H [facility] Last Admin: 01/16/22 08:46 Dose: Not Given Documented by: Sodium Chloride (Ns) 1,000 mls @ 100 mls/hr IVCONT .Q10H [facility] Last Admin: 01/16/22 21:51 Dose: Not Given Documented by: Levofloxacin (Levofloxacin 750 Mg Tablet) 750 mg PO Q24H [facility] Last Admin: 01/16/22 16:42 Dose: 750 mg Documented by: Melatonin (Melatonin 3 Mg Tablet) 6 mg PO BEDTIME PRN PRN Reason: Insomnia Last Admin: 01/16/22 01:42 Dose: 6 mg Documented by: Nicotine (Nicotine 21 Mg Patch.Td24) 21 mg TRANSDERMA DAILY [facility] Last Admin: 01/16/22 19:04 Dose: 21 mg Documented by: Nicotine Polacrilex (Nicotine Polacrilex 2 Mg Gum) 2 mg BUCCAL Q1H PRN PRN Reason: Nicotine Cravings Last Admin: 01/16/22 19:05 Dose: 2 mg Documented by: Olanzapine (Olanzapine 5 Mg Tablet) 5 mg PO BID PRN PRN Reason: anxiety, agitation Senna (Sennosides 8.6 Mg Tablet) 17.2 mg PO BEDTIME PRN PRN Reason: Constipation Sodium Chloride (0.9 % Sodium Chloride Flush 3 Ml Syringe) 3 ml IVFLUSH QSHIFT [facility] Last Admin: 01/16/22 21:50 Dose: Not Given Documented by: Home Medications Medication Instructions Recorded Confirmed Last Taken Type bictegravir 50 mg-emtricitabine 1 tab PO DAILY 01/28/21 01/16/22 02/04/21 History 200 mg-tenofovir alafenam 25 mg tablet (Biktarvy) Physical Exam Vital Signs: Vital Signs: Last Vital Signs Temp 98.4 F 01/16/22 05:52 Pulse 64 01/16/22 16:50 Resp 16 01/16/22 16:50 BP 98/63 01/16/22 16:50 Pulse Ox 99 01/16/22 16:50 BMI result Body Mass Index 20.0 Const: General: anxious Limitations: altered mental status HEENT: Head: Yes normal to inspection Mouth: Normal oral and palatal mucosa present Eyes: General: appearance normal, both eyes and all related structures Resp: Effort & Inspection: normal respiratory effort Cardio: Rate: regular rate Rhythm: regular rhythm GI: Palpation (GI): Soft to palpation and nontender Skin: General skin exam: no rashes or lesions noted Extrem: General: Yes normal to inspection Psych: Affect: Depressed mood present Thought process: Confabulating thought process present Thought content: Paranoid delusions present and Derealization present Insight: Poor insight present (Psych) Judgement: Poor judgement present (Psych) Results Labs CBC & Chem 7: 01/16/22 07:00 01/16/22 07:00 Labs: Short CBC 01/16/22 Range/Units 07:00 WBC 7.4 (4.8-10.8) X10*3/uL Hgb 12.8 L (14.0-18.0) g/dl Hct 38.2 L (42.0-52.0) % Plt Count 218 (160-400) X10*3/uL BMP 01/16/22 07:00 Sodium 141 Potassium 3.6 Chloride 108 Carbon Dioxide 23 BUN 17 H Creatinine 1.00 Calcium 8.9 D Assessment and Plan (1) Acute psychosis: Status: Acute This psychosis likely due to bipolar 1 as well as contribution from cocaine,fentanyl and marijuana. This doesnt appear to be due to bacterial,viral,fungal or other opportunistic infection from pneumonia. (2) Fever: Status: Acute This transient fever may be due to drug use or small infiltrate which may be due to drug use (cotton fever) or bacterial infection. (3) Pneumonia: Status: Acute This may be chemical aspiration due to drug use or bacterial pneumonia There is no oxygen demand or sputum production or ongoing fever at this time or hypotension or nausea and vomiting or leukocytosis so he meets criteria for oral not IV antibiotics. He has good control of HIV so is not at risk for opportunistic infection. Suggest Po Levaquin 750 mg daily for a week. (4) HIV (human immunodeficiency virus infection): Status: Acute This is good control and I follow at [facility] and just saw on December 31. Continue Biktarvy. (5) Bipolar 1 disorder: Status: Acute Psychiatry involvement.
[2022-01-17] MEDS: Nicotine Polacrilex 2 MG GUM BUCCAL (01:36)
[2022-01-17] MEDS: Melatonin 3 MG TABLET 6 MG PO (01:40)
[2022-01-17 06:35] VITALS: BP 128/78; PULSE 74; RESP 14; O2SAT 98
[2022-01-17] MEDS: Nicotine 21 MG PATCH.TD24 TRANSDERMA (08:33)
[2022-01-17] MEDS: Bictegrav/Emtricit/Tenofov Ala TABLET 1 TAB PO (08:33)
--- NOTE | 2022-01-17 11:12 | PM.DS ---
DS: Providers Provider Date of Service: 01/17/22 Date of admission: 01/15/22 23:08 Date of discharge: 01/17/22 Primary care physician: Unknown Physician Consults: 01/15/22 23:08 Consult to Infectious Diseases Routine Consulting Provider: Yasmine Jacobs Reason for consultation: History of HIV; pneumonia Consult to Psychiatry Routine Consulting Provider: Psych Covering Reason for consultation: Ussan/hallucinations 01/16/22 08:17 Addiction Medicine Routine Consulting Provider: Dora Bright Reason for consultation: cocaine + fentanyl 01/16/22 15:47 Consult to Crisis Stat Reason for consultation: susan/psychosis, needs IPLOC. medically CLEARED DS: Diagnosis Discharge Diagnosis (1) Acute psychosis: Status: Acute (2) Fever: Status: Acute (3) Pneumonia: Status: Acute (4) HIV (human immunodeficiency virus infection): Status: Acute (5) Bipolar 1 disorder: Status: Acute DS: Summary Hospital Course Hospital Course: From admission H+P by Fernando Perez, 01/15/22: 26-year-old male with a past medical history of HIV, bipolar disorder, kidney stones presented to the hospital with a chief complaint of acute manic episode.? Patient unable to give the history.? Poor historian secondary to his manic/acute psychotic episode. Per ER team patient when presented, was severely agitated, complaining of auditory and visual hallucinations, talking to himself; noted to be tachycardic; also had temperature of 100.9 F; Patient initial being managed as Behavioral Health related.? Later patient developed fever.? Labs essentially benign.? Chest x-ray showed right lung pneumonia; patient was given antibiotics.? Admitted for further management.? For acute manic episode patient was given Haldol, Zyprexa, psychiatry has seen the patient in the ER.? Patient at one point was also in physical restraints subsequently removed. At the time of my interview patient is slightly com; but not involved in the interview. Appears comfortable.? Review of all other systems is limited This 26yo M with HIV presenting with susan + psychosis and placed on a section 12 hold in the ED developed fever and was found to have pneumonia. He was not septic. He was treated with ceftriaxone and azithromycin on the medical service. ID was consulted and knows him from outpatient HIV care; he is adherent with his ART [Biktarvy 1 tab daily] and his CD4 is in the 500s. Antibiotics were changed to levofloxacin to complete a 7-day course. Urine toxicology was positive for cocaine and fentanyl. His acute susan and psychosis resolved. He was re-assessed by the N team and the psychiatrist and was cleared for discharge home with outpatient follow-up. Time Spent with Patient Time attestation: Total time spent providing and/or coordinating discharge services: Discharge coordination time: Greater than 30 minutes Quality: Safe Use of Opioids Does Pt have an Active Cancer Diagnosis on the Problem List?: No Quality: Stroke Does the patient have a stroke diagnosis?: No Physical Exam Vital Signs: Vital Signs: Last Vital Signs Temp 98.4 F 01/16/22 05:52 Pulse 74 01/17/22 06:35 Resp 14 01/17/22 06:35 BP 128/78 01/17/22 06:35 Pulse Ox 98 01/17/22 06:35 BMI result Body Mass Index 20.0 Gen: in no acute distress but floridly manic HEENT: sclera anicteric, moist mucus membranes Neck: supple Lungs: clear to auscultation bilaterally Heart: regular rate and rhythm, no murmurs Abd: soft, non-tender, non-distended Ext: no edema Skin: warm/well-perfused Neuro: alert and oriented x3, no focal findings Psych: bizarre affect, grandiose and delusional DS: Data Data Completed and Pending Completed studies during hospitalization [Text1]: Laboratory Results WBC 7.4 X10*3/uL (4.8-10.8) 01/16/22 07:00 RBC 4.12 X10*6/uL (4.60-5.80) L 01/16/22 07:00 Hgb 12.8 g/dl (14.0-18.0) L 01/16/22 07:00 Hct 38.2 % (42.0-52.0) L 01/16/22 07:00 MCV 92.7 fL (80.0-98.0) 01/16/22 07:00 MCH 31.1 pg (27.0-33.0) 01/16/22 07:00 MCHC 33.5 g/dl (31.0-36.0) 01/16/22 07:00 RDW 12.9 % (11.0-16.0) 01/16/22 07:00 Plt Count 218 X10*3/uL (160-400) 01/16/22 07:00 MPV 9.8 fL (9.4-12.4) 01/16/22 07:00 Immature Gran % (Auto) 0.1 % (0.0-0.4) 01/16/22 07:00 Neut % (Auto) 53.8 % (45-73) 01/16/22 07:00 Lymph % (Auto) 26.4 % (20-40) 01/16/22 07:00 [place] % (Auto) 13.3 % (2-11) H 01/16/22 07:00 Eos % (Auto) 5.9 % (0-4) H 01/16/22 07:00 Baso % (Auto) 0.5 % (0-2) 01/16/22 07:00 Lymph # (Auto) 1.9 X10*3/uL (1.2-4.9) 01/16/22 07:00 [place] # (Auto) 1.0 X10*3/uL (0.1-1.2) 01/16/22 07:00 Eos # (Auto) 0.4 X10*3/uL (0.0-0.4) 01/16/22 07:00 Baso # (Auto) 0.0 X10*3/uL (0.0-0.2) 01/16/22 07:00 Abs Immat Gran (auto) 0.01 X10*3/uL (0.00-0.03) 01/16/22 07:00 Absolute Neuts (auto) 4.0 x10*3/uL (2.0-8.3) 01/16/22 07:00 Absolute Nucleated RBC 0.000 X10*3/uL (0.0-0.012) 01/16/22 07:00 Nucleated RBC % (auto) 0.0 /100WBC (0.0-0.2) 01/16/22 07:00 Sodium 141 mmol/L (135-145) 01/16/22 07:00 Potassium 3.6 mmol/L (3.3-5.1) 01/16/22 07:00 Chloride 108 mmol/L (96-108) 01/16/22 07:00 Carbon Dioxide 23 mmol/L (22-29) 01/16/22 07:00 Anion Gap 14 (12-20) 01/16/22 07:00 BUN 17 mg/dL (9-16) H 01/16/22 07:00 Creatinine 1.00 mg/dL (0.5-1.4) 01/16/22 07:00 Estim Creat Clear Calc 86.9 01/16/22 07:00 Estimated GFR > 60 01/16/22 07:00 Random Glucose 87 mg/dL (60-115) 01/16/22 07:00 Lactic Acid 0.6 mmol/L (0.5-2.0) 01/15/22 22:57 Calcium 8.9 mg/dL (8.4-10.2) D 01/16/22 07:00 Magnesium 2.3 mg/dL (1.6-2.6) 01/15/22 Unknown Total Bilirubin 0.4 mg/dL (0.0-1.0) 01/15/22 Unknown Direct Bilirubin 0.2 mg/dL (0.0-0.5) 01/15/22 Unknown AST 29 U/L (5-37) D 01/15/22 Unknown ALT 24 U/L (0-40) 01/15/22 Unknown Alkaline Phosphatase 68 U/L (39-117) 01/15/22 Unknown Lactate Dehydrogenase 163 U/L (118-273) 01/16/22 07:00 Total Protein 8.3 g/dL (6.5-8.0) H 01/15/22 Unknown Albumin 4.8 g/dL (3.5-5.0) 01/15/22 Unknown Procalcitonin 0.08 ng/mL 01/16/22 07:00 Urine Color YELLOW 01/15/22 19:21 Urine Appearance CLEAR 01/15/22 19:21 Urine pH 5.5 (5.0-8.0) 01/15/22 19:21 Ur Specific [place] >= 1.030 (1.005-1.025) H 01/15/22 19:21 Urine Protein TRACE MG/DL (NEG-TRACE) 01/15/22 19:21 Urine Glucose (UA) NEG MG/DL (NEG) 01/15/22 19:21 Urine Ketones 5 MG/DL (NEG) 01/15/22 19:21 Urine Blood NEG (NEG) 01/15/22 19:21 Urine Nitrite NEG (NEG) 01/15/22 19:21 Ur Leukocyte Esterase NEG (NEG) 01/15/22 19:21 Urine Opiates Screen Not Detected (Not Detect) 01/15/22 19:21 Urine Fentanyl Screen POSITIVE (Not Detect) H 01/15/22 19:21 Ur Barbiturates Screen Not Detected (Not Detect) 01/15/22 19:21 Ur Phencyclidine Scrn Not Detected (Not Detect) 01/15/22 19:21 Ur Amphetamines Screen Not Detected (Not Detect) 01/15/22 19:21 U Benzodiazepines Scrn Not Detected (Not Detect) 01/15/22 19:21 Urine Cocaine Screen POSITIVE (Not Detect) H 01/15/22 19:21 U Marijuana (THC) Screen POSITIVE (Not Detect) H 01/15/22 19:21 Ethyl Alcohol 47 mg/dL 01/15/22 Unknown COVID-19 (MIKHAIL) Negative (Negative) 01/15/22 15:56 COVID-19 Clin Com See Note 01/15/22 15:56 Influenza Type A (VAL) Negative (Negative) 01/15/22 19:30 Influenza Type B (VAL) Negative (Negative) 01/15/22 19:30 Influenza A & B Note See Note 01/15/22 19:30 Impressions Chest X-Ray 01/15/22 21:44 IMPRESSION: Possible subtle airspace opacity at the right lung base. This could represent developing pneumonitis/pneumonia. Pending studies at discharge: CD4 count and HIV-1 viral load from 01/16/22 Labs on day of discharge: Preliminary micro results at discharge 01/16/22 00:05 Blood Culture - Preliminary Blood - Venous No growth after 24 hours. 01/15/22 22:57 Blood Culture - Preliminary Blood - Venous No growth after 24 hours. Discharge Plan Discharge Patient Disposition: Home, Self-Care Discharge Diagnosis: pneumonia, HIV, acute susan/psychosis, substance abuse Referrals: [facility] [Physician] - 1 Week Physician,Unknown J [Primary Care Provider] - 1 Week Discharge Medications: New nicotine (polacrilex) 2 mg Gum 2 mg buccal Q1H PRN (Reason: Nicotine Cravings) Qty: 100 0RF nicotine 21 mg/24 hr Patch 24 Hour 21 mg transdermal DAILY Qty: 30 0RF levofloxacin 750 mg Tablet 750 mg PO Q24H Qty: 6 0RF Continued Biktarvy 50-200-25 mg tablet 1 tab PO DAILY 0RF Discharge Orders: Discharge Order (Routine); Ordered 01/17/22 Ordered By: Erick Chou Diet: advance to usual diet Activity on Discharge: As tolerated Stand Alone Forms: Patient Portal Discharge page Care Plan Goals: mental health recovery from pneumonia Health Concerns: pneumonia, HIV, acute susan/psychosis, substance abuse Plan of Treatment: take levofloxacin 750 mg daily for 6 more days continue Biktarvy and follow up with Dr Meaghan Jacobs at [facility] for HIV care avoid substance of abuse smoking cessation: nicotine patch/gum see your primary care doctor and follow up with psychiatr/counseling Assessment: see Discharge Summary Patient Instructions: Bipolar Disorder (DC)
--- NOTE | 2022-01-17 12:44 | MHC.CM.PN ---
Attempted to meet with patient again in regards to discharge planning. Patient is currently sleeping. Case management assessment completed using medical record. Patient is medically cleared per Dr Chou. N eval was ordered yesterday and not completed yet. Per [facility] Team, PARVEENN will be here within 1 hour to assess patient. No HCP on file. PCP is at [facility]. No covid vaccine info is available at this time. Discharge plan will not be able to be determined until seen by BLACK. Continue to monitor for d/c needs.
--- NOTE | 2022-01-17 13:51 | HO.PM.IMPN ---
Subjective Subjective Date of Service: 01/17/22 Interval History: Cough improved. Still exhibits grandiosity + delusions, requests help for his mind. Review of Systems Review of Systems: Yes all other systems are reviewed and are negative Physical Exam Vital Signs: Vital Signs: Last Vital Signs Temp 98.4 F 01/16/22 05:52 Pulse 74 01/17/22 06:35 Resp 14 01/17/22 06:35 BP 128/78 01/17/22 06:35 Pulse Ox 98 01/17/22 06:35 BMI result Body Mass Index 20.0 Gen: in no acute distress HEENT: sclera anicteric, moist mucus membranes Neck: supple Lungs: clear to auscultation bilaterally Heart: regular rate and rhythm, no murmurs Abd: soft, non-tender, non-distended Ext: no edema Skin: warm/well-perfused Neuro: alert and oriented x3, no focal findings Psych: bizarre affect, grandiose/delusional Objective Data Active Medications Acetaminophen (Acetaminophen 325 Mg Tablet) 650 mg PO Q6H PRN PRN Reason: Pain, Mild (Pain Scale 1-3) Benzonatate (Benzonatate 100 Mg Capsule) 100 mg PO TID PRN PRN Reason: Cough Bictegravir/Emtricitabine/Tenofovir (Bictegrav/Emtricit/Tenofov Ala Tablet) 1 tab PO DAILY [facility] Last Admin: 01/17/22 08:33 Dose: 1 tab Documented by: MARTY Enoxaparin Sodium (Enoxaparin Sodium 40 Mg/0.4 Ml Syringe) 40 mg SUBCUT Q24H [facility] Last Admin: 01/17/22 08:11 Dose: Not Given Documented by: MARTY Non-Admin Reason: Patient Refused Sodium Chloride (Ns) 1,000 mls @ 100 mls/hr IVCONT .Q10H [facility] Last Admin: 01/16/22 21:51 Dose: Not Given Documented by: ANDREA Non-Admin Reason: See Note Levofloxacin (Levofloxacin 750 Mg Tablet) 750 mg PO Q24H [facility] Last Admin: 01/16/22 16:42 Dose: 750 mg Documented by: LAUREN Melatonin (Melatonin 3 Mg Tablet) 6 mg PO BEDTIME PRN PRN Reason: Insomnia Last Admin: 01/17/22 01:40 Dose: 6 mg Documented by: ANDREA Nicotine (Nicotine 21 Mg Patch.Td24) 21 mg TRANSDERMA DAILY [facility] Last Admin: 01/17/22 08:33 Dose: 21 mg Documented by: MARTY Nicotine Polacrilex (Nicotine Polacrilex 2 Mg Gum) 2 mg BUCCAL Q1H PRN PRN Reason: Nicotine Cravings Last Admin: 01/17/22 01:36 Dose: 2 mg Documented by: ANDREA Olanzapine (Olanzapine 5 Mg Tablet) 5 mg PO BID PRN PRN Reason: anxiety, agitation Senna (Sennosides 8.6 Mg Tablet) 17.2 mg PO BEDTIME PRN PRN Reason: Constipation Sodium Chloride (0.9 % Sodium Chloride Flush 3 Ml Syringe) 3 ml IVFLUSH QSHIFT [facility] Last Admin: 01/17/22 08:05 Dose: Not Given Documented by: MARTY Non-Admin Reason: Patient Asleep Labs CBC & Chem 7: 01/16/22 07:00 01/16/22 07:00 Microbiology Microbiology Results: Microbiology 01/16/22 00:05 Blood Culture - Preliminary Blood - Venous No growth after 24 hours. 01/15/22 22:57 Blood Culture - Preliminary Blood - Venous No growth after 24 hours. Assessment and Plan (1) Acute psychosis: Status: Acute (2) Pneumonia: Status: Acute Plan hospital d#3 26yo M with HIV presenting with susan + psychosis, developed fever and found to have PNA # PNA - levofloxacin d#12/21 # HIV - continue Biktarvy, CD4 + pVL pending but per ID he was recently fully suppressed with CD4 in the 500s # polysubstance abuse - Utox positive for cocaine + fentanyl. pt denies use. CARE Team + Addiction Medicine consultations # susan/psychosis - medically cleared, needs inpatient psychiatry In my clinical judgment, the patient requires continued hospitalization for the following reasons: susan/psychosis Quality Stroke Does the patient have a stroke diagnosis?: No VTE Prior VTE?: No VTE Risk Level:: Medical - moderate - high VTE Device Contraindication: Treatment Not Indicated VTE Drug Contraindication: N/A - Med Ordered
--- NOTE | 2022-01-17 16:31 | PM.PSYCN ---
History of Present Illness Date of Service: 01/17/22 Chief Complaint: Pneumonia Reason for Consult: mental status update HPI Narrative: see previous consult note for details. MD was contacted by CARE team and [facility] staff regarding this patient as [facility] eval this morning resulted in recommendation not to involuntarily hospitalize pt, whereas section 12a was completed by psych consult on tuesday night. per collateral from [facility] staff, pt's mental status has returned to baseline. [facility] staff had collected collateal information from pt's therapist, mother, and sister. [facility] staff reported pt's mother lives across the street from him and supervises his medication administration. both mother and sister support return of pt to outpt treatment and reported he is now at baseline mental status. on interview with pt, this MD noted some moderately pressured speech, disorganized thoughts, derailment, euphoric affect. however, the pt denied any SI/HI/AVH and strongly endorsed a desire to continue to work with his therapist and an interest in appropriate psychoactive medications. pt declined offer of admission to the mental health unit. he was future oriented, and goal oriented, talking anbout needing to get home and pay his rent and contact his therapist to schedule another appointment. Past Psychiatric History: -Past meds: risperdal -Hx of IPLOC, last admission to [facility] was 2015. Medical Evaluation Reviewed: Yes [facility] Medical History (Updated 01/17/22 @ 11:13 by Erick Chou MD) HIV (human immunodeficiency virus infection) Kidney stones Polysubstance abuse Tobacco abuse Surgical History Hx of cystoscopy Hx of endoscopy Diagnostics Vital Signs (24Hr): Vital Signs - 24 hr 01/16/22 16:50 01/17/22 06:35 Pulse Rate 64 74 Respiratory Rate 16 14 Blood Pressure 98/63 128/78 Pulse Oximetry 99 98 BMI result Body Mass Index 20.0 Labs Results: 01/16/22 07:00 01/16/22 07:00 Labs: Laboratory Results - last 48 hr 01/15/22 01/15/22 01/15/22 19:06 19:21 19:21 WBC RBC Hgb Hct MCV MCH MCHC RDW Plt Count MPV Immature Gran % (Auto) Neut % (Auto) Lymph % (Auto) [place] % (Auto) Eos % (Auto) Baso % (Auto) Lymph # (Auto) [place] # (Auto) Eos # (Auto) Baso # (Auto) Abs Immat Gran (auto) Absolute Neuts (auto) Absolute Nucleated RBC Nucleated RBC % (auto) Sodium Potassium Chloride Carbon Dioxide Anion Gap BUN Creatinine Estim Creat Clear Calc Estimated GFR Random Glucose Lactic Acid Calcium Magnesium Total Bilirubin Direct Bilirubin AST ALT Alkaline Phosphatase Lactate Dehydrogenase Total Protein Albumin Procalcitonin Urine Color YELLOW Urine Appearance CLEAR Urine pH 5.5 Ur Specific [place] >= 1.030 H Urine Protein TRACE Urine Glucose (UA) NEG Urine Ketones 5 Urine Blood NEG Urine Nitrite NEG Ur Leukocyte Esterase NEG Urine Opiates Screen Not Detected Urine Fentanyl Screen POSITIVE H Ur Barbiturates Screen Not Detected Ur Phencyclidine Scrn Not Detected Ur Amphetamines Screen Not Detected U Benzodiazepines Scrn Not Detected Urine Cocaine Screen POSITIVE H U Marijuana (THC) Screen POSITIVE H Ethyl Alcohol Influenza Type A (VAL) Cancelled Influenza Type B (VAL) Cancelled Influenza A & B Note Cancelled 01/15/22 01/15/22 01/15/22 19:30 22:57 Unknown WBC 10.9 H RBC 4.73 Hgb 14.6 Hct 42.9 MCV 90.7 MCH 30.9 MCHC 34.0 RDW 12.8 Plt Count 266 MPV 9.5 Immature Gran % (Auto) 0.4 Neut % (Auto) 70.1 Lymph % (Auto) 17.9 L [place] % (Auto) 10.3 Eos % (Auto) 0.9 Baso % (Auto) 0.4 Lymph # (Auto) 2.0 [place] # (Auto) 1.1 Eos # (Auto) 0.1 Baso # (Auto) 0.0 Abs Immat Gran (auto) 0.04 H Absolute Neuts (auto) 7.7 Absolute Nucleated RBC 0.000 Nucleated RBC % (auto) 0.0 Sodium Potassium Chloride Carbon Dioxide Anion Gap BUN Creatinine Estim Creat Clear Calc Estimated GFR Random Glucose Lactic Acid 0.6 Calcium Magnesium Total Bilirubin Direct Bilirubin AST ALT Alkaline Phosphatase Lactate Dehydrogenase Total Protein Albumin Procalcitonin Urine Color Urine Appearance Urine pH Ur Specific [place] Urine Protein Urine Glucose (UA) Urine Ketones Urine Blood Urine Nitrite Ur Leukocyte Esterase Urine Opiates Screen Urine Fentanyl Screen Ur Barbiturates Screen Ur Phencyclidine Scrn Ur Amphetamines Screen U Benzodiazepines Scrn Urine Cocaine Screen U Marijuana (THC) Screen Ethyl Alcohol Influenza Type A (VAL) Negative Influenza Type B (VAL) Negative Influenza A & B Note See Note 01/15/22 01/15/22 01/16/22 Unknown Unknown 07:00 WBC 7.4 RBC 4.12 L Hgb 12.8 L Hct 38.2 L MCV 92.7 MCH 31.1 MCHC 33.5 RDW 12.9 Plt Count 218 MPV 9.8 Immature Gran % (Auto) 0.1 Neut % (Auto) 53.8 Lymph % (Auto) 26.4 [place] % (Auto) 13.3 H Eos % (Auto) 5.9 H Baso % (Auto) 0.5 Lymph # (Auto) 1.9 [place] # (Auto) 1.0 Eos # (Auto) 0.4 Baso # (Auto) 0.0 Abs Immat Gran (auto) 0.01 Absolute Neuts (auto) 4.0 Absolute Nucleated RBC 0.000 Nucleated RBC % (auto) 0.0 Sodium 139 Potassium 3.7 Chloride 104 Carbon Dioxide 19 L Anion Gap 20 BUN 17 H Creatinine 1.06 Estim Creat Clear Calc 82.0 Estimated GFR > 60 Random Glucose 85 Lactic Acid Calcium 9.9 D Magnesium 2.3 Total Bilirubin 0.4 Direct Bilirubin 0.2 AST 29 D ALT 24 Alkaline Phosphatase 68 Lactate Dehydrogenase Total Protein 8.3 H Albumin 4.8 Procalcitonin Urine Color Urine Appearance Urine pH Ur Specific [place] Urine Protein Urine Glucose (UA) Urine Ketones Urine Blood Urine Nitrite Ur Leukocyte Esterase Urine Opiates Screen Urine Fentanyl Screen Ur Barbiturates Screen Ur Phencyclidine Scrn Ur Amphetamines Screen U Benzodiazepines Scrn Urine Cocaine Screen U Marijuana (THC) Screen Ethyl Alcohol 47 Influenza Type A (VAL) Influenza Type B (VAL) Influenza A & B Note 01/16/22 01/16/22 07:00 07:00 WBC RBC Hgb Hct MCV MCH MCHC RDW Plt Count MPV Immature Gran % (Auto) Neut % (Auto) Lymph % (Auto) [place] % (Auto) Eos % (Auto) Baso % (Auto) Lymph # (Auto) [place] # (Auto) Eos # (Auto) Baso # (Auto) Abs Immat Gran (auto) Absolute Neuts (auto) Absolute Nucleated RBC Nucleated RBC % (auto) Sodium 141 Potassium 3.6 Chloride 108 Carbon Dioxide 23 Anion Gap 14 BUN 17 H Creatinine 1.00 Estim Creat Clear Calc 86.9 Estimated GFR > 60 Random Glucose 87 Lactic Acid Calcium 8.9 D Magnesium Total Bilirubin Direct Bilirubin AST ALT Alkaline Phosphatase Lactate Dehydrogenase 163 Total Protein Albumin Procalcitonin 0.08 Urine Color Urine Appearance Urine pH Ur Specific [place] Urine Protein Urine Glucose (UA) Urine Ketones Urine Blood Urine Nitrite Ur Leukocyte Esterase Urine Opiates Screen Urine Fentanyl Screen Ur Barbiturates Screen Ur Phencyclidine Scrn Ur Amphetamines Screen U Benzodiazepines Scrn Urine Cocaine Screen U Marijuana (THC) Screen Ethyl Alcohol Influenza Type A (VAL) Influenza Type B (VAL) Influenza A & B Note Imaging Radiology Impressions: ITS Impressions Chest X-Ray 01/15/22 21:44 IMPRESSION: Possible subtle airspace opacity at the right lung base. This could represent developing pneumonitis/pneumonia. Chest CT 01/16/22 08:35 IMPRESSION: 1. Pulmonary nodules measuring up to 0.5 cm are nonspecific. Following Fleischner Society guidelines, imaging follow-up is recommended as clinically indicated. 2. No acute cardiopulmonary process. Mental Status Exam Mental Status Exam Narrative: adequately dressed and groomed, for the circumstances. cooperative with interview. mild PMA of frequent repositionings. speech increased in rate, amount. nml tone, nml loudness, decr latency. thoughts disorganized, some thought blocking. affect full range, somewhat euphoric. mood euthymic. denies SI/HI/AVH. Medications Medications Current Medications Acetaminophen (Acetaminophen 325 Mg Tablet) 650 mg PO Q6H PRN PRN Reason: Pain, Mild (Pain Scale 1-3) Benzonatate (Benzonatate 100 Mg Capsule) 100 mg PO TID PRN PRN Reason: Cough Bictegravir/Emtricitabine/Tenofovir (Bictegrav/Emtricit/Tenofov Ala Tablet) 1 tab PO DAILY [facility] Last Admin: 01/17/22 08:33 Dose: 1 tab Documented by: Enoxaparin Sodium (Enoxaparin Sodium 40 Mg/0.4 Ml Syringe) 40 mg SUBCUT Q24H [facility] Last Admin: 01/17/22 08:11 Dose: Not Given Documented by: Sodium Chloride (Ns) 1,000 mls @ 100 mls/hr IVCONT .Q10H [facility] Last Admin: 01/16/22 21:51 Dose: Not Given Documented by: Levofloxacin (Levofloxacin 750 Mg Tablet) 750 mg PO Q24H [facility] Last Admin: 01/16/22 16:42 Dose: 750 mg Documented by: Melatonin (Melatonin 3 Mg Tablet) 6 mg PO BEDTIME PRN PRN Reason: Insomnia Last Admin: 01/17/22 01:40 Dose: 6 mg Documented by: Nicotine (Nicotine 21 Mg Patch.Td24) 21 mg TRANSDERMA DAILY [facility] Last Admin: 01/17/22 08:33 Dose: 21 mg Documented by: Nicotine Polacrilex (Nicotine Polacrilex 2 Mg Gum) 2 mg BUCCAL Q1H PRN PRN Reason: Nicotine Cravings Last Admin: 01/17/22 01:36 Dose: 2 mg Documented by: Olanzapine (Olanzapine 5 Mg Tablet) 5 mg PO BID PRN PRN Reason: anxiety, agitation Senna (Sennosides 8.6 Mg Tablet) 17.2 mg PO BEDTIME PRN PRN Reason: Constipation Sodium Chloride (0.9 % Sodium Chloride Flush 3 Ml Syringe) 3 ml IVFLUSH QSHIFT [facility] Last Admin: 01/17/22 08:05 Dose: Not Given Documented by: Allergies Allergies Allergy/AdvReac Type Severity Reaction Status Date / Time sulfamethoxazole Allergy Mild HIVES Verified 12/09/20 19:14 [From BACTRIM] trimethoprim [From BACTRIM] Allergy Mild HIVES Verified 12/09/20 19:14 Assessment & Plan Assessment & Plan (1) Bipolar 1 disorder: Status: Acute Code(s): F31.9 - Bipolar disorder, unspecified Plan manic episode, moderately improved from presentation. pt is assessed as not at imminent risk of harm to self or others and has sufficient social supports to ensure his independent living in the community. he is not suitable for involuntary hospitalization and should be discharged from the hospital per his request once medically cleared. I spent ___60___ minutes with the patient and/or on the patient floor today, greater than?50% of which was spent counseling/coordinating care.
[2022-01-17] MEDS: levoFLOXacin 750 MG TABLET PO (17:00)
[2022-01-18 16:51] LABS: Absolute CD3 Count 1835 cells/uL (840-3060); Absolute CD4 Count 898 cells/uL (490-1740); Absolute CD8 Count 866 cells/uL (180-1170); Absolute Lymphocytes 2873 cells/uL (850-3900); CD4 CD8 Ratio 1.04 (0.86-5.00); Percent CD3 Cells 64 % (57-85); Percent CD4 Cells 31 % (30-61); Percent CD8 Cells 30 % (12-42)
[2022-01-20 22:07] LABS: HIV RNA PCR Qn Copies NOT DETECTED copies/mL (NOT DETECTED); HIV RNA PCR Qn Log Copies NOT DETECTED (NOT DETECTED)
== END 2022-01-17 17:11 | disposition home or self-care (01) | DRG 139 ==
LOC: HO.ED 22:35 → HO.EDOVER 23:14 → HO.S3 01-16 13:01 → HO.EDOVER 01-16 13:08
PROVIDERS: Physician Assistant; Admitting Provider Hospitalist; Emergency Provider Emergency Medicine; PCP General Practice; Visit Provider Family Medicine
DX: J18.9 Pneumonia, unspecified organism (principal); F19.14 Other psychoactive substance abuse with psychoactive substance-induced mood disorder; F31.9 Bipolar disorder, unspecified; F43.10 Post-traumatic stress disorder, unspecified; Z21 Asymptomatic human immunodeficiency virus [HIV] infection status; Z20.822 Contact with and (suspected) exposure to COVID-19; Z87.442 Personal history of urinary calculi; Z88.2 Allergy status to sulfonamides; Z79.899 Other long term (current) drug therapy
CPT/HCPCS: 36415; 71045; 71250; 80048; 80076; 80307; 81003; 82077; 83605; 83615; 83735; 84145; 85025; 86359; 86360; 87040; 87502; 87536; 87635; 93005; 99218; 99285; J0696; J1650; Q0163

== ENCOUNTER 2022-07-23 18:08 | Emergency (ER) | payer MEDICAID, SELFPAY ==
[2022-07-23 18:15] VITALS: BP 123/90; PULSE 96; RESP 18; O2SAT 99
--- NOTE | 2022-07-23 18:27 | ED_ITS ---
HPI - Overdose General Chief Complaint: Overdose Stated Complaint: OVERDOSE Time Seen by Provider: 07/23/22 18:12 Source: patient, EMS and old records reviewed Mode of arrival: EMS Limitations: no limitations History of Present Illness HPI Narrative: 26 yo male with history of HIV on HAART, bipolar disorder, ?schizophrenia (pt reports he has been dx with this but just has short term memory loss), hx polysubstance abuse (would not elaborate) who presents to the ER for evaluation of an overdose. Patient was found not breathing lying supine on his living room floor today. Family could not wake him up, splashed him with water and then called 911. Police and fire arrived and found the patient apneic. 4 mg of intranasal Narcan was given x2 with minimal improvement. On EMS arrival an IV was established and 0.5 mg IV Narcan was given. Patient's mentation improved, he was initially confused but after female with was alert and oriented x3. He is brought to the ER for further evaluation. On arrival to the ER patient jumped off the stretcher and walks to the treatment room. He was alert and oriented, wanting to go home. He noted a a piece of glass in his right heel that he tried to get out. He admitted to drug use but ?did not want to tell you people about it.? MD complaint: accidental overdose Onset (ago): minute(s) Timing confirmed by: family member Intent: wanted to go to sleep Context: Accidental Overdose: wanted to get high Treatments Prior to Arrival: narcan Related Data Home Medications Medication Instructions Recorded Confirmed bictegravir 50 mg-emtricitabine 1 tab PO DAILY 01/28/21 01/16/22 200 mg-tenofovir alafenam 25 mg tablet (Biktarvy) Previous Rx's Medication Instructions Recorded levofloxacin 750 mg tablet 750 mg PO Q24H #6 tabs 01/17/22 nicotine (polacrilex) 2 mg gum 2 mg buccal Q1H PRN Nicotine 01/17/22 Cravings #100 ea nicotine 21 mg/24 hr daily 21 mg transdermal DAILY #30 ea 01/17/22 transdermal patch Allergies Allergy/AdvReac Type Severity Reaction Status Date / Time sulfamethoxazole Allergy Mild HIVES Verified 12/09/20 19:14 [From BACTRIM] trimethoprim [From BACTRIM] Allergy Mild HIVES Verified 12/09/20 19:14 Review of Systems Review of Systems: Constitutional: No Fever, No Chills ENT/Mouth: No sore throat, No Rhinorrhea, No Swallowing Difficulty Cardiovascular: No Chest Pain, No SOB Respiratory: No Cough, No Sputum, No Wheezing, No dyspnea Gastrointestinal: No Nausea, No Vomiting, No Diarrhea, No abdominal Pain Genitourinary: No Dysuria, No Urinary Frequency, No Hematuria Musculoskeletal: + joint pain, No Myalgias Skin: No Skin Lesions, No rash Neuro: No Weakness, No Numbness, No Dizziness, No Headache Psych: + Anxiety/Panic, No Depression, No SI Heme/Lymph: No Bruising, No Lymphadenopathy PMFSH Past Medical History Medical History (Updated 07/23/22 @ 18:41 by FERNIE Tam) Bipolar 1 disorder HIV (human immunodeficiency virus infection) Kidney stones Polysubstance abuse Post traumatic stress disorder (PTSD) Tobacco abuse Surgical History Hx of cystoscopy Hx of endoscopy Social History Social History Alcohol intake: never Patient Tobacco Use Status: Current everyday Tobacco user Substance Use Type: Crack/Cocaine and Marijuana Advance Directives: No Advance Directives Information Provided: Yes service: No Current occupational status: disabled Physical Exam Vital Signs: Vital Signs: Last Vital Signs Pulse 96 07/23/22 18:15 Resp 18 07/23/22 18:15 BP 123/90 H 07/23/22 18:15 Pulse Ox 99 07/23/22 18:15 O2 Del Method 07/23/22 18:15 BMI result Body Mass Index 0.0 Appearance: Alert. Oriented X3. No acute distress. Eyes: Pupils equal, round and reactive to light. ENT: Pharynx normal. Neck: Normal inspection. Neck supple. CVS: Normal heart rate and rhythm. Pulses normal. Respiratory: No respiratory distress. Breath sounds normal. Abdomen: Soft and nontender. +BS x4 Skin: Skin warm and dry. Normal skin color. Normal skin turgor. No rashes. Extremities: Bilateral upper extremity scratches Neuro: Oriented X 3. No motor deficit. No sensory deficit. Course Course Course Narrative: 26 y/o male with history of HIV on HAART, opioid use disorder here for evaluation of unintentional opioid overdose requiring 8.5 mg total narcan after being found apneic in his living room by his . Will not elaborate on his drug use. AAO x3. Glass in his foot that we will attempt to remove. Will monitor closely after narcan administration in the field. Reevaluation(s) Reevaluation #1: Patient removed the glass fragment from his foot. Declining tetanus shot. Reevaluation #2: Patient remains AAO x3. Tolerating PO. Asking for a list of recovery centers. continuous improvement coach not available at this time, CARE team to provide the list to the patient. Will provide IN Narcan on dispo. Discharge Plan Discharge Clinical Impression: Drug overdose Patient Disposition: Home, Self-Care Instructions: Adult Overdose (ED) Additional Instructions: DO NOT USE HEROIN - IT CAN KILL YOU. YOU ALMOST TODAY RECOMMEND DETOX We have a walk-in Sub[facility] on the 4th floor Prescriptions: No Action Biktarvy 50-200-25 mg tablet 1 tab PO DAILY nicotine (polacrilex) 2 mg Gum 2 mg buccal Q1H PRN (Reason: Nicotine Cravings) Qty: 100 0RF nicotine 21 mg/24 hr Patch 24 Hour 21 mg transdermal DAILY Qty: 30 0RF levofloxacin 750 mg Tablet 750 mg PO Q24H Qty: 6 0RF
== END 2022-07-24 07:07 | disposition home or self-care (01) ==
PROVIDERS: Emergency Provider Emergency Medicine
DX: T40.1X1A Poisoning by heroin, accidental (unintentional), initial encounter (principal); Y92.9 Unspecified place or not applicable; F14.10 Cocaine abuse, uncomplicated; F12.10 Cannabis abuse, uncomplicated; Z79.899 Other long term (current) drug therapy
CPT/HCPCS: 99281; 99283

== ENCOUNTER 2022-10-30 18:54 | Emergency (ER) | payer MEDICAID, SELFPAY ==
[2022-10-30 19:00] VITALS: BP 101/78; BP 120/55; PULSE 105; PULSE 120; RESP 18; TEMP 36.6; O2SAT 100; O2SAT 95; BMI 21.4
--- NOTE | 2022-10-30 19:00 | ED_ITS ---
HPI - Overdose General Stated Complaint: Poss overdose per EMS Time Seen by Provider: 10/30/22 18:59 Source: patient and EMS Mode of arrival: EMS Limitations: no limitations History of Present Illness HPI Narrative: Patient comes to the emergency room via EMS for an overdose. A bystander found him outside of an apartment complex, patient received 8 mg of intranasal Narcan, patient woke up immediately. On arrival to the emergency room, patient is awake, alert and oriented x4, no acute distress. Patient is refusing care and is refusing to wear a mask, refusing to follow directions from the nurses. Per EMS, oxygen saturation in the high 90s on room air. -denies suicidal or homicidal ideation, states this was an accidental overdose Related Data Home Medications Medication Instructions Recorded Confirmed bictegravir 50 mg-emtricitabine 1 tab PO DAILY 01/28/21 01/16/22 200 mg-tenofovir alafenam 25 mg tablet (Biktarvy) Previous Rx's Medication Instructions Recorded levofloxacin 750 mg tablet 750 mg PO Q24H #6 tabs 01/17/22 nicotine (polacrilex) 2 mg gum 2 mg buccal Q1H PRN Nicotine 01/17/22 Cravings #100 ea nicotine 21 mg/24 hr daily 21 mg transdermal DAILY #30 ea 01/17/22 transdermal patch Allergies Allergy/AdvReac Type Severity Reaction Status Date / Time sulfamethoxazole Allergy Mild HIVES Verified 10/30/22 19:00 [From BACTRIM] trimethoprim [From BACTRIM] Allergy Mild HIVES Verified 10/30/22 19:00 Review of Systems Review of Systems: Constitutional : No Weight loss, No Fever, No Chills, No Night Sweats, No Fatigue, No Malaise ENT/Mouth : No Hearing loss, No Ear Pain, No Nasal Congestion, No Sinus Pain, No Hoarseness, No sore throat, No Rhinorrhea, No Swallowing Difficulty Eyes: No Eye Pain, No Swelling, No Redness, No Foreign Body, No Discharge, No Vision Changes Cardiovascular : No Chest Pain, No SOB, No Dyspnea on Exertion, No Orthopnea, No Edema, No Palpitations Respiratory : No Cough, No Sputum, No Wheezing, No Smoke Exposure, No Dyspnea Gastrointestinal : No Nausea, No Vomiting, No Diarrhea, No Constipation, No abdominal Pain, No Hematochezia, No Melena Genitourinary : no irregular bleeding, No Dysuria, No Urinary Frequency, No Hematuria, No Urinary Incontinence, No Urgency, No Flank Pain, No Urinary Flow Changes, No Hesitancy Musculoskeletal : No joint pain, No Myalgias, No Joint Swelling Skin : No Skin Lesions, No rash Neuro : No Weakness, No Numbness, No Paresthesias, No Loss of Consciousness, No Dizziness, No Headache Psych : No Anxiety/Panic, No Depression, No SI/HI/AH/VH, No Social Issues, Heme/Lymph: No Bruising, No Bleeding,No Lymphadenopathy Endocrine : No Polyuria, No Polydipsia, No Temperature Intolerance [facility] Past Medical History Medical History Bipolar 1 disorder HIV (human immunodeficiency virus infection) Kidney stones Polysubstance abuse Post traumatic stress disorder (PTSD) Tobacco abuse Surgical History Hx of cystoscopy Hx of endoscopy Social History Social History Alcohol intake: never Patient Tobacco Use Status: Current everyday Tobacco user Substance Use Type: Crack/Cocaine and Marijuana Advance Directives: No service: No Current occupational status: disabled Physical Exam Const: Other: Appearance: Alert. Oriented X3. No acute distress. Eyes: Pupils equal, round and reactive to light. ENT: Pharynx normal. Neck: Normal inspection. Neck supple. No lymph nodes noted. No crepitus CVS: Normal heart rate and rhythm. Pulses normal. Normal S1 and S2 Respiratory: No respiratory distress. Breath sounds normal. No Wheezing. No rales Abdomen: Soft and nontender. No rigidity. No distention. Skin: Skin warm and dry. Normal skin color. Normal skin turgor. Extremities: No lower extremity edema. No Lacerations. No Rash Neuro: Oriented X 3. No motor deficit. No sensory deficit. Moving all extremities. No slurred speech. CN 2 through 12 grossly intact Psych: calm, cooperative, normal affect Course Course Course Narrative: -patient is alert and oriented x4 , no acute distress. Patient is requesting to be discharged, refusing any services. -patient refused care team or recovery analyst -patient requested food and drinks, good p.o. intake -patient was provided with home Narcan Medical Decision Making Differential Diagnosis Differential Diagnoses: The differential diagnosis associated with the presentation includes Discharge Plan Discharge Clinical Impression: Overdose Patient Disposition: Home, Self-Care Instructions: Adult Overdose (ED) Additional Instructions: Please follow-up with your primary care physician tomorrow. If you have any worsening or new symptoms, please return to the emergency room or call 911 Prescriptions: No Action Biktarvy 50-200-25 mg tablet 1 tab PO DAILY nicotine (polacrilex) 2 mg Gum 2 mg buccal Q1H PRN (Reason: Nicotine Cravings) Qty: 100 0RF nicotine 21 mg/24 hr Patch 24 Hour 21 mg transdermal DAILY Qty: 30 0RF levofloxacin 750 mg Tablet 750 mg PO Q24H Qty: 6 0RF
[2022-10-30] MEDS: Naloxone HCl Nasal TAKE HOME 4 MG SPRAY NOSTRILALT (19:09)
--- NOTE | 2022-10-30 19:09 | PC.NURSE ---
pt a&ox3, vss, pt declining to speak w manager recovery, given take home jose daniel.
== END 2022-10-30 19:11 | disposition home or self-care (01) ==
LOC: HO.ED 19:07
PROVIDERS: Emergency Provider Emergency Medicine
DX: F19.10 Other psychoactive substance abuse, uncomplicated (principal); T50.901A Poisoning by unspecified drugs, medicaments and biological substances, accidental (unintentional), initial encounter; Y92.480 Sidewalk as the place of occurrence of the external cause; F17.200 Nicotine dependence, unspecified, uncomplicated
CPT/HCPCS: 99283

== ENCOUNTER 2023-01-04 11:35 | Emergency (ER) | payer MEDICAID, SELFPAY ==
[2023-01-04 11:48] VITALS: BP 121/94; PULSE 92; RESP 19; TEMP 36.6; O2SAT 99; BMI 21.4
--- NOTE | 2023-01-04 11:49 | ED.GENADULT ---
HPI - General Adult General Chief complaint: GI Bleed Stated complaint: Rectal bleed Related Data Home Medications ?Medication ?Instructions ?Recorded ?Confirmed bictegravir 50 mg-emtricitabine 1 tab PO DAILY 01/28/21 01/16/22 200 mg-tenofovir alafenam 25 mg tablet (Biktarvy) Previous Rx's ?Medication ?Instructions ?Recorded levofloxacin 750 mg tablet 750 mg PO Q24H #6 tabs 01/17/22 nicotine (polacrilex) 2 mg gum 2 mg buccal Q1H PRN Nicotine 01/17/22 Cravings #100 ea nicotine 21 mg/24 hr daily 21 mg transdermal DAILY #30 ea 01/17/22 transdermal patch Allergies Allergy/AdvReac Type Severity Reaction Status Date / Time sulfamethoxazole Allergy Mild HIVES Verified 10/30/22 19:00 [From BACTRIM] trimethoprim [From BACTRIM] Allergy Mild HIVES Verified 10/30/22 19:00 PMFSH Past Medical History Medical History Bipolar 1 disorder HIV (human immunodeficiency virus infection) Kidney stones Polysubstance abuse Post traumatic stress disorder (PTSD) Tobacco abuse Surgical History Hx of cystoscopy Hx of endoscopy Social History Social History Alcohol intake: never Patient Tobacco Use Status: Current everyday Tobacco user Substance Use Type: Crack/Cocaine and Marijuana Advance Directives: No service: No Current occupational status: disabled Physical Exam ED Vital Signs: BMI result Body Mass Index 21.4 Course Course Course Narrative: This is an RME: Additional HPI, ROS, PE not included below will be deferred to primary provider. 27 year old male history of HIV on Biktarvy presents w/ rectal bleeding since september reports bright red blood per rectum and anal swelling w/ a/c pain. Has tried multiple OTC medications w/o relief. Patient participates in anal sex. PE defrered to primary provider due to lac of privacy in triage unable to perform rectal exam Plan: basic labs. Medical Decision Making Lab Data 01/04/23 11:55 01/04/23 11:55 Labs: Lab Results 01/04/23 Range/Units 11:55 WBC 7.2 (4.8-10.8) X10*3/uL RBC 4.44 L (4.60-5.80) X10*6/uL Hgb 12.9 L (14.0-18.0) g/dl Hct 39.4 L (42.0-52.0) % MCV 88.7 (80.0-98.0) fL MCH 29.1 (27.0-33.0) pg MCHC 32.7 (31.0-36.0) g/dl RDW 13.2 (11.0-16.0) % Plt Count 316 D (160-400) X10*3/uL MPV 9.0 L (9.4-12.4) fL Immature Gran % (Auto) 0.4 (0.0-0.4) % Neut % (Auto) 45.2 (45-73) % Lymph % (Auto) 30.9 (20-40) % [place] % (Auto) 9.4 (2-11) % Eos % (Auto) 13.4 H (0-4) % Baso % (Auto) 0.7 (0-2) % Lymph # (Auto) 2.2 (1.2-4.9) X10*3/uL [place] # (Auto) 0.7 (0.1-1.2) X10*3/uL Eos # (Auto) 1.0 H (0.0-0.4) X10*3/uL Baso # (Auto) 0.1 (0.0-0.2) X10*3/uL Abs Immat Gran (auto) 0.03 (0.00-0.03) X10*3/uL Absolute Neuts (auto) 3.2 (2.0-8.3) x10*3/uL Absolute Nucleated RBC 0.000 (0.0-0.012) X10*3/uL Nucleated RBC % (auto) 0.0 (0.0-0.2) /100WBC Sodium 141 (135-145) mmol/L Potassium 3.8 (3.3-5.1) mmol/L Chloride 109 H (96-108) mmol/L Carbon Dioxide 23 (22-29) mmol/L Anion Gap 13 (12-20) BUN 17 H (9-16) mg/dL Creatinine 0.88 (0.5-1.4) mg/dL Estim Creat Clear Calc 102.0 Estimated GFR > 60 Random Glucose 106 (60-115) mg/dL Calcium 8.5 (8.4-10.2) mg/dL Total Bilirubin 0.3 (0.0-1.0) mg/dL AST 16 (5-37) U/L ALT 13 (0-40) U/L Alkaline Phosphatase 57 (39-117) U/L Total Protein 6.6 (6.5-8.0) g/dL Albumin 3.6 (3.5-5.0) g/dL Discharge Plan Discharge Clinical Impression: Eloped from emergency department Patient Disposition: Elopement Prescriptions: No Action Biktarvy 50-200-25 mg tablet 1 tab PO DAILY nicotine (polacrilex) 2 mg Gum 2 mg buccal Q1H PRN (Reason: Nicotine Cravings) Qty: 100 0RF nicotine 21 mg/24 hr Patch 24 Hour 21 mg transdermal DAILY Qty: 30 0RF levofloxacin 750 mg Tablet 750 mg PO Q24H Qty: 6 0RF Interventions: ED Discharge Assessment Last Done: 01/04/23 13:31 Discharge Date/Time: 01/04/23 14:21 Print Language: Indian
[2023-01-04 11:58] LABS: MANUAL DIFF FLAG NO
[2023-01-04 12:02] LABS: Basophils Absolute Auto 0.1 X10*3/uL (0.0-0.2); Basophils Percent Auto 0.7 % (0-2); Eosinophils Percent Auto 13.4 % (0-4); Hematocrit 39.4 % (42.0-52.0); Hemoglobin 12.9 g/dl (14.0-18.0); Imm Gran Abs Auto 0.03 X10*3/uL (0.00-0.03); Imm Gran Pct Auto 0.4 % (0.0-0.4); Lymphocytes Absolute Auto 2.2 X10*3/uL (1.2-4.9); Lymphocytes Percent Auto 30.9 % (20-40); Mean Corpuscular HGB Conc 32.7 g/dl (31.0-36.0); Mean Corpuscular Hemoglobin 29.1 pg (27.0-33.0); Mean Corpuscular Volume 88.7 fL (80.0-98.0); Monocytes Absolute Auto 0.7 X10*3/uL (0.1-1.2); Monocytes Percent Auto 9.4 % (2-11); Neutrophils Absolute Auto 3.2 x10*3/uL (2.0-8.3); Neutrophils Percent Auto 45.2 % (45-73); Platelet Count 316 X10*3/uL (160-400); Red Blood Count 4.44 X10*6/uL (4.60-5.80); Red Cell Distribution Width 13.2 % (11.0-16.0); White Blood Count 7.2 X10*3/uL (4.8-10.8)
[2023-01-04 12:19] LABS: Alanine Aminotransferase 13 U/L (0-40); Albumin Level 3.6 g/dL (3.5-5.0); Alkaline Phosphatase 57 U/L (39-117); Anion Gap 13 (12-20); Aspartate Amino Transferase 16 U/L (5-37); Bilirubin Total 0.3 mg/dL (0.0-1.0); Blood Urea Nitrogen 17 mg/dL (9-16); Calcium 8.5 mg/dL (8.4-10.2); Carbon Dioxide 23 mmol/L (22-29); Chloride 109 mmol/L (96-108); Estimated Glomerular Filt Rate > 60; Glucose Random 106 mg/dL (60-115); Potassium 3.8 mmol/L (3.3-5.1); Sodium 141 mmol/L (135-145); Total Protein 6.6 g/dL (6.5-8.0)
== END 2023-01-04 14:21 | disposition left against medical advice (07) ==
LOC: HO.ED 14:21
PROVIDERS: Physician Assistant; Emergency Provider Emergency Medicine
DX: K62.5 Hemorrhage of anus and rectum (principal); Z79.899 Other long term (current) drug therapy
CPT/HCPCS: 36415; 80053; 85025; 99282; 99283